=== PATIENT | male | born 1950 | race Caucasian/White ===

== ENCOUNTER → 2016-05-23 | Day surgery (SDC) | payer MEDICARE, OTHER ==
[~2016-05-23] VITALS: Ht 180.3 cm; Wt 105.7 kg
[~2016-05-23] MED LIST: /WARF5TA PO; ADVI200C5 PO; BUPIVACAINE HCL 0.25% 30 ML VIAL As Ordered ONE; BUPIVACAINE HCL 0.25% 30 ML VIAL XX ONE; DOCU10ELUD PO; ECOT325T PO; GLYCOPYRROLATE INJ 0.2 MG/ML 2 ML VIAL As Ordered ONE; LEVS0.123 PO; LORT5TAB PO; LR 1,000 ML IV SCH; METOCLOPRAMIDE INJ 10MG/2ML VIAL (J2765) As Ordered ONE; MIDAZOLAM INJ 2 MG/2 ML VIAL (J2250) As Ordered ONE; MORPHINE 2 MG/ML 1ML SYRINGE IV PRN; MULT1TAB11 PO; NEOSTIGMINE 1MG/ML 5 ML SYRINGE (J2710) As Ordered ONE; NORCO, ANEXSIA 5/325MG TABLET (HYDROcodone/ACETAMINOPHEN) As Ordered ONE; NORCO, ANEXSIA 5/325MG TABLET (HYDROcodone/ACETAMINOPHEN) PO PRN; ONDANSETRON 4MG/2ML VIAL (J2405) As Ordered ONE; ONDANSETRON 4MG/2ML VIAL (J2405) IV PRN; OXYC-208 PO; PHENYLephrine HCL 500 MCG/5 ML (100MCG/ML) SYRINGE (J2370) As Ordered ONE; PROPOFOL 200 MG/20 ML VIAL As Ordered ONE; ROCURONIUM BROMIDE 50 MG/5 ML VIAL As Ordered ONE; SIME80TA PO; XARE20TA PO; ZOLP5TAB PO; [UNRECOGNIZED DRUG - OTHER] OR; fentaNYL 100 MCG/2 ML INJECTION (J3010) IV PRN; fentaNYL 250 MCG/5 ML INJECTION (J3010) As Ordered ONE
[2016-05-23 12:30] VITALS: BP 144/85
--- NOTE | 2016-05-24 00:20 | RO ---
DATE OF PROCEDURE: 05/23/2016 PREOPERATIVE DIAGNOSIS: Ventral incisional hernia. POSTOPERATIVE DIAGNOSIS: Ventral incisional hernia. PROCEDURE PERFORMED: Laparoscopic ventral incisional herniorrhaphy with Parietex mesh patch. SURGEON: Dr. Kang Pimentel SUPPORT TEACHER: ANESTHESIA: General. INDICATIONS FOR PROCEDURE: The patient is a 66-year-old man who had undergone a laparoscopic converted to open low anterior resection several years ago. He has developed a small hernia above the umbilicus in an area where he had a trocar. He is now for a laparoscopic repair. DESCRIPTION OF PROCEDURE: The patient was placed under general endotracheal anesthesia. The patient's abdomen was prepped and draped in a . 0.25% Marcaine was infiltrated at the trocar sites prior to insertion. Initial entry was in the right lateral abdomen at the level of the umbilicus. A short incision was made. The Veress needle was inserted. The abdomen was insufflated with carbon dioxide gas and a 5 mm scope was placed through a 5-mm port and this was advanced through the abdominal wall without difficulty. Initial examination showed that there were surprisingly no adhesions to the anterior abdominal wall, either in the area of his hernia or down along his midline scar. He was noted to have a small fascial defect, probably 1-1/2 to 2 cm in size just above the umbilicus. This was just inferior to the inferior edge of his falciform ligament. A second 5 mm trocar was placed in the right upper quadrant and using the Harmonic scalpel, the preperitoneal fat on both sides of the fascial defect and extending up to include portions of the falciform ligament, were peeled away from the inner aspect of the abdominal wall and excised. This fatty tissue was grasped with a clamp and the abdomen was then deflated. A roughly 3-1/2 to 4 cm midline incision was made above the umbilicus and deepened to the hernia sac. The sac was dissected free and excised. The fascial defect was approximately 1-1/2 to 2 cm in size. The edges were cleared of overlying fibrofatty tissue. A 9 cm Parietex patch, product code number [id number] was selected. This was hydrated. The midline was marked with a marker. A 0 Ethibond suture was used to place a suture through the middle portion of the fascial defect and incorporate a very small bite of the center of the mesh which was reduced into the abdomen. The suture was tied down and two additional 0 Ethibond sutures were placed to complete the transverse closure of the fascial defect. The abdomen was then inflated. The mesh was positioned and a SecureStrap Tacker was used to apply the mesh to the anterior abdominal wall. The abdominal pressure was reduced to 8 mmHg when the mesh was applied and the 25 tacks nicely affixed the mesh to the abdominal wall. Final inspection showed no evidence of any significant bleeding. The abdomen was deflated, and the remaining trocars were removed. The subcutaneous tissues at the midline were closed with #0 Vicryl and the skin incisions were all closed with buried #4-0 Vicryl. Steri-Strips were applied followed by light dressings. The patient tolerated the procedure well without apparent complication. He was awakened in the operating room, extubated and moved to the recovery room in stable condition.
== END | disposition home or self-care (01) ==
LOC: M SDC 06:00
PROVIDERS: ATTEND Surgery
DX: K43.9 Ventral hernia without obstruction or gangrene (principal); I81 Portal vein thrombosis; E66.09 Other obesity due to excess calories; Z68.33 Body mass index [BMI] 33.0-33.9, adult; G47.33 Obstructive sleep apnea (adult) (pediatric); M10.9 Gout, unspecified; C18.9 Malignant neoplasm of colon, unspecified; M12.9 Arthropathy, unspecified; Z79.899 Other long term (current) drug therapy
CPT/HCPCS: 49652; 88302; C1781; J2250; J2370; J2405; J2710; J2765; J3010

== ENCOUNTER → 2017-02-07 | Outpatient (REF) | payer MEDICARE, OTHER ==
[~2017-02-07] MED LIST changes: -BUPIVACAINE HCL 0.25% 30 ML VIAL As Ordered ONE; -BUPIVACAINE HCL 0.25% 30 ML VIAL XX ONE; -ECOT325T PO; +ECOT325T5 PO; -GLYCOPYRROLATE INJ 0.2 MG/ML 2 ML VIAL As Ordered ONE; -LR 1,000 ML IV SCH; -METOCLOPRAMIDE INJ 10MG/2ML VIAL (J2765) As Ordered ONE; -MIDAZOLAM INJ 2 MG/2 ML VIAL (J2250) As Ordered ONE; -MORPHINE 2 MG/ML 1ML SYRINGE IV PRN; -NEOSTIGMINE 1MG/ML 5 ML SYRINGE (J2710) As Ordered ONE; -NORCO, ANEXSIA 5/325MG TABLET (HYDROcodone/ACETAMINOPHEN) As Ordered ONE; -NORCO, ANEXSIA 5/325MG TABLET (HYDROcodone/ACETAMINOPHEN) PO PRN; -ONDANSETRON 4MG/2ML VIAL (J2405) As Ordered ONE; -ONDANSETRON 4MG/2ML VIAL (J2405) IV PRN; -PHENYLephrine HCL 500 MCG/5 ML (100MCG/ML) SYRINGE (J2370) As Ordered ONE; -PROPOFOL 200 MG/20 ML VIAL As Ordered ONE; -ROCURONIUM BROMIDE 50 MG/5 ML VIAL As Ordered ONE; -fentaNYL 100 MCG/2 ML INJECTION (J3010) IV PRN; -fentaNYL 250 MCG/5 ML INJECTION (J3010) As Ordered ONE
[2017-02-07 21:15] LABS: CARCINOEMBRYONIC ANTIGEN 1.3 NG/ML (<2.5)
[2017-02-07 21:32] LABS: URIC ACID 10.5 MG/DL (3.5-7.2)
== END ==
LOC: M LAB REF 16:28
PROVIDERS: ATTEND Internal Medicine
DX: M10.9 Gout, unspecified (principal); C20 Malignant neoplasm of rectum

== ENCOUNTER → 2017-08-15 | Outpatient (REF) | payer MEDICARE, OTHER ==
[2017-08-15 12:25] LABS: URIC ACID 6.9 MG/DL (3.5-7.2)
== END ==
LOC: M LAB REF 11:50
DX: M10.9 Gout, unspecified (principal)

== ENCOUNTER → 2018-10-06 | Outpatient (REF) | payer MEDICARE, OTHER ==
[~2018-10-06] MED LIST changes: -/WARF5TA PO; +COUM1TAB17 PO; -DOCU10ELUD PO; +DOCU5LIQ PO
[2018-10-06 12:45] LABS: BLOOD UREA NITROGEN 14 MG/DL (7-18); CREATININE FOR GFR 1.11 MG/DL (0.70-1.30); GLOMERULAR FILTRATION RATE > 60.0 (>42)
== END ==
LOC: M LABDRAW1 11:41
PROVIDERS: ATTEND Physician Assistant
DX: M17.0 Bilateral primary osteoarthritis of knee (principal); M47.896 Other spondylosis, lumbar region; M51.36 Other intervertebral disc degeneration, lumbar region

== ENCOUNTER → 2018-10-19 | Outpatient (REF) | payer MEDICARE, OTHER ==
[2018-10-19 13:44] LABS: URIC ACID 6.3 MG/DL (3.5-7.2)
[2018-10-19 13:47] LABS: VITAMIN B12 LEVEL 621 PG/ML
[2018-10-19 13:48] LABS: FOLATE > 24.0 NG/ML
== END ==
LOC: M LAB REF 12:28
PROVIDERS: ATTEND Internal Medicine
DX: M10.9 Gout, unspecified (principal); R20.2 Paresthesia of skin

== ENCOUNTER 2020-03-05 07:29 | Inpatient (IN) | payer MEDICARE, OTHER ==
[~2020-03-05] VITALS: Ht 177.8 cm; Wt 107.0 kg
[2020-03-05] MEDS ORDERED: NS 1,000 ML IV ONE (08:15)
[2020-03-05 08:21] LABS: BASO % 0.2 % (0.0-1.0); EOS % 0.1 % (0.0-3.0); HEMATOCRIT 44.1 % (42.0-52.0); HEMOGLOBIN 15.3 g/dl (13.5-17.5); LYMPH # 0.6 10^3/uL (1.5-5.0); LYMPH % 3.3 % (24.0-44.0); MEAN CORPUSCULAR HEMOGLOBIN 32.7 pg (27.0-33.0); MEAN CORPUSCULAR HGB CONC 34.7 g/dl (32.0-36.5); MEAN CORPUSCULAR VOLUME 94.2 fl (80.0-96.0); MONO # 1.1 10^3/uL (0.0-0.8); NEUTROPHILS % 88.5 % (36.0-66.0); PLATELET COUNT, AUTOMATED 146 10^3/uL (150-450); RED BLOOD COUNT 4.68 10^6/uL (4.30-6.10); WHITE BLOOD COUNT 18.1 10^3/uL (4.0-10.0)
[2020-03-05] MEDS ORDERED: ACETAMINOPHEN 500 MG TAB PO ONE (08:30)
[2020-03-05] MEDS ORDERED: PIPERACILLIN/TAZOBACTAM SOD 4.5 GM in D5W MINI-BAG PLUS 50 ML IV ONE (08:30)
[2020-03-05 08:57] LABS: ALBUMIN 3.6 GM/DL (3.2-5.2); BILIRUBIN,DIRECT 0.5 MG/DL (0.0-0.2); BILIRUBIN,TOTAL 1.2 MG/DL (0.2-1.0); C REACTIVE PROTEIN QUANTITATIV 28.5 MG/DL (0.00-0.30); TOTAL PROTEIN 7.5 GM/DL (6.4-8.2)
--- NOTE | 2020-03-05 09:32 | REP ---
INDICATION: dysuria, hematuria COMPARISON: 06/15/2014 TECHNIQUE: Axial noncontrast images from the lung bases to the pubic symphysis with coronal and sagittal reformations. This CT examination was performed using the following dose reduction techniques: Automated exposure control, adjustment of mA and/or kv according to the patient's size, and use of iterative reconstruction technique. FINDINGS: The bladder is collapsed but subtle perivesicular stranding is appreciated raising the possibility of cystitis. Prostatomegaly is noted causing mass effect on the base of the bladder. The kidneys demonstrate mild symmetric chronic perinephric stranding without hydroureteronephrosis or nephroureterolithiasis. Diffuse fatty infiltration to the liver noted. Spleen, pancreas, gallbladder, and bilateral adrenal glands are normal. The enteric system is without obstruction or acute inflammatory process. Scattered colonic and sigmoid diverticula noted without acute diverticulitis. No ascites. No free air. No adenopathy. Atherosclerotic changes to the aorta noted without aneurysm. Musculoskeletal structures demonstrate degenerative changes. Lung bases are clear. IMPRESSION: 1. Bladder demonstrates perivesicular stranding suggesting cystitis and correlation with urinalysis is recommended. The kidneys/ureters are normal. 2. Prostatomegaly. 3. Diverticulosis without acute diverticulitis. 4. Hepatosteatosis. <Electronically signed by Anton Grewal > 03/05/20 [id number]
[2020-03-05] MEDS ORDERED: ZINC220CA PO (09:51)
[2020-03-05] MEDS ORDERED: ZYLO300T6 PO (09:51)
[2020-03-05] MEDS ORDERED: OMEP-218 PO (09:51)
[2020-03-05] MEDS ORDERED: D31000TA2 PO (09:51)
[2020-03-05] MEDS ORDERED: COLC1TAB14 PO (09:51)
[2020-03-05] MEDS ORDERED: zolPIDEM TARTRATE 5 MG TAB PO PRN (10:45)
--- NOTE | 2020-03-05 12:19 | HPEPDOC ---
[facility] Medical History & Physical Date of Admission Mar 05, 2020 Date of Service: Mar 05, 2020 Attending Physician: Jacqueline Camargo MD History and Physical CHIEF COMPLAINT: Burning with urination, diarrhea HISTORY OF PRESENT ILLNESS: Patient is a 70-year-old male with past medical history of colorectal cancer, portal vein thrombosis, RIC, gout, degenerative joint disease presented to the emergency room with the chief complaint of increased burning with urination and diarrhea over the last 48 hours. Patient states his abnormal symptoms began on 03/03/2020 with having 34 nonbloody diarrhea episodes, watery in consistency. He denies any recent antibiotic use, recent hospitalizations, diet changes or abdominal pain associated with diarrhea. He also began having increased dysuria and increased urinary frequency compared to normal. He denied nausea, vomiting, chest pain, shortness of breath, abdominal/pubic pain, weakness. Other associated symptoms include chills, decreased appetite, decreased intake of fluids and food. Due to the symptoms above the patient came for further evaluation to the ER. In the emergency room heart rate was 117256, blood pressure within normal limits, febrile at 101.3 Fahrenheit. WBC 18.1, lactic acid elevated at 2.1, UA was positive. The patient has no prior history of urinary tract infection. CT abd/pelvis: likely cystitis. Urine culture was sent and blood cultures 2 sets were drawn. ECG showed sinus tachycardia. The patient was given 1 L saline and antibiotic. The patient was admitted for further treatment of UTI, sepsis. REVIEW OF SYSTEMS: CONSTITUTIONAL: Denies unexplained weight gain or weight loss EYES: Denies eye drainage, eye pain, visual changes, dry/irritated eye EARS, NOSE, MOUTH, THROAT: Denies difficulty hearing, ringing in ears, mouth sores, loose teeth, sore throat, facial numbness or pain NECK: Denies swollen glands CARDIOVASCULAR: Denies irregular heartbeat, racing heart, chest pains, swelling of feet or legs, pain in legs with walking RESPIRATORY: Denies shortness of breath, night sweats, wheezing, sputum production, oxygen at home, coughing up blood, cough lasting > 1 month GASTROINTESTINAL: Denies abdominal pain, constipation, bloody stool, heartburn, nausea, vomiting GENITOURINARY: Denies bloody urine, leaking urine, impotence MUSCULOSKELETAL: Denies joint pain, muscle pain, leg swelling INTEGUMENTARY: Denies rash, itching, new skin lesion, change in existing skin lesion, hair loss or increase, breast changes. NEUROLOGICAL: Denies headaches, dizziness, difficulty walking, numbness or tingling PSYCHIATRIC: Denies depression, anxiety, recurrent bad thoughts, mood swings, hallucinations PAST MEDICAL HISTORY: 1. colorectal cancer 2. portal vein thrombosis 2012 3. RIC 4. gout 5. degenerative joint disease PAST SURGICAL HISTORY: 1. Carpal tunnel surgery b/l 2. facial surgery s/p trauma 3. b/l knee arthroplasty 2010 4. Multiple hernia repair 5. abdominal surgery to excise colorectal cancer 6. Steroid injections to left hip FAMILY HISTORY: Father: CVA, Mother: CAD, Siblings: sister- MS SOCIAL HISTORY: Prior smoker of several packs per week over 16 years. Quit February 1986. Drinks alcohol socially, denies drug use. Follows with Dr. Villafuerte primary care pro vider regularly. Follows with oncology at [facility]. He is a retired transportation officer and does not use a cane or a walker to ambulate. He is a full code. ALLERGIES: Please see below. HOME MEDICATIONS: Please see below. PHYSICAL EXAMINATION: VS: HR 103-120, sinus. 126/75, RR 18, 95% on RA, Temp 101.3 CONSTITUTIONAL: No acute distress, resting comfortably, AAO x 3 EYES: PERRLA, EOM intact HENT, MOUTH: Normocephalic, atraumatic, moist mucous membranes NECK: SUPPLE, no JVD, no lymphadenopathy, no carotid bruit CV: tachycardic, sinus. S1S2 normal, no murmurs/rubs/gallops RESPIRATORY: Clear to auscultation bilaterally, no rales/rhonchi/wheezes GI: distended abdomen, BS positive in 4 quadrants, soft, nontender, no rebound or guarding, no organomegaly : Deferred MUSCULOSKELETAL: Normal ROM. No cyanosis, clubbing, swelling, joint deformity, extremity edema INTEGUMENTARY: Intact, no rashes, no lesions, no erythema NEUROLOGIC: Cranial Nerves II-XII are intact, no focal deficits PSYCHIATRIC: Mood and affect are normal LABORATORY DATA: Please see below IMAGING: CT abd/pelvis: 1. Bladder demonstrates perivesicular stranding suggesting cystitis and correlation with urinalysis is recommended. The kidneys/ureters are normal. 2. Prostatomegaly. 3. Diverticulosis without acute diverticulitis. 4. Hepatosteatosis. ASSESSMENT: 70-year-old male with past medical history of colorectal cancer, portal vein thrombosis, RIC, hx gout, degenerative joint disease admitted admitted for further treatment of UTI, sepsis. PLAN: UTI, sepsis -WBC 18, febrile, HR 103-120 with UCx pending -No hx of UTI in past -F/u UCx and BCx, daily labs -Started on IVFs, ceftriaxone, tylenol PRN. Diarrhea likely 2/2 to sepsis, not suspecting an infectious GI source -no episodes since the AM -Denies abd pain, n/v -Monitor, c/w treatment above RIC -Does not use nightly as suggested, no home O2 -F/u with PCP Hx of colorectal cancer -S/p colorectal cancer resection, cancer free for 6 years -Follows with [facility] regularly hx of portal vein thrombosis -C/w ASA DJD -Follows with [facility], received first left hip steroid injection recently -Tylenol PRN DVT px. -Enoxaparin DISPOSITION: Admitted under inpatient status. Plan is discharge home when medically improved. Vital Signs Vital Signs Date Time Temp Pulse Resp B/P (MAP) Pulse Ox O2 Delivery O2 Flow Rate FiO2 03/05/20 11:00 97.6 100 93 03/05/20 09:30 20 Room Air 03/05/20 09:00 118/68 (85) Laboratory Data Labs 24H Laboratory Tests 2 03/05/20 08:03: Immature Granulocyte % (Auto) 1.9, Neutrophils (%) (Auto) 88.5H, Lymphocytes (%) (Auto) 3.3L, Monocytes (%) (Auto) 6.0H, Eosinophils (%) (Auto) 0.1, Basophils (%) (Auto) 0.2, Neutrophils # (Auto) 16.0H, Lymphocytes # (Auto) 0.6L, Monocytes # (Auto) 1.1H, Eosinophils # (Auto) 0.0, Basophils # (Auto) 0.0, Nucleated Red Blood Cells % (auto) 0.0, POC Glucose (Misc Panel) 153H, POC Sodium (Misc Panel) 134L, POC Potassium (Misc Panel) 3.9, POC Chloride (Misc Panel) 99, POC Total CO2 (Misc Panel) 20.0L, POC Blood Urea Nitrogen (Misc Panel 20, POC Ionized Calcium (Misc Panel) 4.4L, POC Creatinine (Misc Panel) 1.3, POC Hematocrit (Misc Panel) 47.0, Total Bilirubin 1.2H, Direct Bilirubin 0.5H, Aspartate Amino Transf (AST/SGOT) 32, Alanine Aminotransferase (ALT/SGPT) 37, Alkaline Phosphatase 85, C-Reactive Protein, Quantitative 28.50H, Total Protein 7.5, Albumin 3.6, Albumin/Globulin Ratio 0.9, Amylase Level 18L, Lipase 77 03/05/20 08:04: POC Lactate (Misc Panel) 2.09*H 03/05/20 08:07: POC Troponin I (Misc) 0.01, POC Prothrombin Time (Misc) 15.2H, POC INR (Misc) 1.3 03/05/20 08:08: Urine Color FUENTES, Urine Appearance TURBIDH, Urine pH 5.0, Urine Specific [place] 1.024, Urine Protein 2+H, Urine Glucose (UA) NEGATIVE, Urine Ketones NEGATIVE, Urine Blood 3+H, Urine Nitrite NEGATIVE, Urine Bilirubin NEGATIVE, Urine Urobilinogen 0.2, Urine Leukocyte Esterase 2+H, Urine WBC (Auto) TNTCH, Urine RBC (Auto) TNTCH, Urine Hyaline Casts (Auto) 84, Urine Bacteria (Auto) 2+H, Urine Squamous Epithelial Cells 2, Urine Transitional Epithelial Cells 6, Urine Mucus (Auto) LARGE, Urine Sperm (Auto) CBC/BMP Laboratory Tests 03/05/20 08:03 Microbiology Microbiology 03/05/20 Urine Culture, Received Pending 03/05/20 Blood Culture, Received Pending 03/05/20 Blood Culture, Received Pending Home Medications Scheduled Allopurinol (Zyloprim) 300 Mg Tablet, 300 MG PO DAILY Aspirin (Ecotrin) 325 Mg Tab, 325 MG PO DAILY Cholecalciferol (Vitamin D3) (Vitamin D3) 1,000 Unit Tablet, 1,000 UNITS PO D AILY Colchicine (Colcrys) 0.6 Mg Tablet, 0.6 MG PO DAILY Omeprazole (Omeprazole) 20 Mg Capsule.dr, 20 MG PO DAILY Zinc Sulfate (Zinc Sulfate) 220 Mg Capsule, 220 MG PO DAILY Scheduled PRN Zolpidem Tartrate (Zolpidem Tartrate) 5 Mg Tab, 5 MG PO PRN PRN for SLEEP Allergies Coded Allergies: No Known Allergies (Verified , 07/05/12) A-FIB/CHADSVASC A-FIB History Current/History of A-Fib/PAF?: No Current PO Anticoag Therapy: No Age/Risk Factor Scoring CHADSVASC: CHADSVASC Response (Comments) Value Age Risk Factor Age 65-74 years old 1 Gender Risk Factor Male 0 Hx of CHF No 0 Hx of HTN No 0 Hx of Stroke/TIA/or VTE No 0 Hx of Diabetes No 0 Hx of Vascular Disease No 0 Total 1 Treatment Treatment ordered: Other Other anticoagulant ordered: Jacqueline Avila MD Mar 05, 2020 12:19
[2020-03-05] MEDS: NS 1,000 ML IV SCH ×2 (12:39→22:48)
[2020-03-05] MEDS: cefTRIAXone SOD 1 GM in D5W MINI-BAG PLUS 50 ML IV SCH (12:39)
[2020-03-05 12:53] VITALS: BP 139/79
[2020-03-05] MEDS: OMEPRAZOLE 20 MG CAP PO SCH (13:19)
[2020-03-05] MEDS: VITAMIN D 1,000 INTERNATIONAL UNITS TABLET PO SCH (13:19)
[2020-03-05] MEDS: ASPIRIN ENTERIC 325 MG TAB PO SCH (13:19)
[2020-03-05] MEDS: allopurinoL 300 MG TAB PO SCH (13:19)
[2020-03-05] MEDS: COLCHICINE 0.6 MG TAB PO SCH (14:19)
[2020-03-05] MEDS: ZINC SULFATE 220 MG CAP PO SCH (14:19)
[2020-03-05] MEDS: ACETAMINOPHEN TAB 650MG DOSE (2X325MG) PO PRN ×2 (14:20→14:43)
[2020-03-05 14:35] VITALS: BP 155/90
[2020-03-05 18:00] VITALS: BP 136/82
[2020-03-05] MEDS ORDERED: PHENAZOPYRIDINE 100 MG TAB PO ONE (18:00)
[2020-03-05] MEDS: PHENAZOPYRIDINE 100 MG TAB PO SCH (20:46)
[2020-03-05] MEDS ORDERED: ENOXAPARIN 40MG/0.4ML SYRINGE (J1650 PER 10MG) SC SCH (21:00)
[2020-03-05 22:00] VITALS: BP 133/81
[2020-03-06 02:00] VITALS: BP 131/81
[2020-03-06 06:00] VITALS: BP 130/79
[2020-03-06 06:09] LABS: HEMATOCRIT 40.4 % (42.0-52.0); HEMOGLOBIN 13.4 g/dl (13.5-17.5); MEAN CORPUSCULAR HEMOGLOBIN 31.8 pg (27.0-33.0); MEAN CORPUSCULAR HGB CONC 33.2 g/dl (32.0-36.5); MEAN CORPUSCULAR VOLUME 95.7 fl (80.0-96.0); PLATELET COUNT, AUTOMATED 134 10^3/uL (150-450); RED BLOOD COUNT 4.22 10^6/uL (4.30-6.10); WHITE BLOOD COUNT 14.5 10^3/uL (4.0-10.0)
[2020-03-06 06:29] LABS: ALBUMIN 3.1 GM/DL (3.2-5.2); BILIRUBIN,TOTAL 0.8 MG/DL (0.2-1.0); CALCIUM LEVEL 8.1 MG/DL (8.8-10.2); CREATININE FOR GFR 1.26 MG/DL (0.70-1.30); GLOMERULAR FILTRATION RATE 59.9 (>42); POTASSIUM SERUM 3.8 MEQ/L (3.5-5.1); TOTAL PROTEIN 6.8 GM/DL (6.4-8.2)
[2020-03-06] MEDS: COLCHICINE 0.6 MG TAB PO SCH (08:42)
[2020-03-06] MEDS: ZINC SULFATE 220 MG CAP PO SCH (08:42)
[2020-03-06] MEDS: PHENAZOPYRIDINE 100 MG TAB PO SCH ×2 (08:42→20:11)
[2020-03-06] MEDS: ASPIRIN ENTERIC 325 MG TAB PO SCH (08:42)
[2020-03-06] MEDS: OMEPRAZOLE 20 MG CAP PO SCH (08:42)
[2020-03-06] MEDS: VITAMIN D 1,000 INTERNATIONAL UNITS TABLET PO SCH (08:42)
[2020-03-06] MEDS: allopurinoL 300 MG TAB PO SCH (08:42)
[2020-03-06] MEDS: NS 1,000 ML IV SCH ×2 (08:43→20:11)
[2020-03-06] MEDS ORDERED: FLUBLOK(EGG FREE)(QUAD)INFLUENZA VACC 0.5ML SYRINGE 18YRS & OLDER IM ONE (09:00)
[2020-03-06 10:00] VITALS: BP 130/78
--- NOTE | 2020-03-06 11:57 | IPNPDOC ---
Date Seen The patient was seen on 03/06/20. Progress Note SUBJECTIVE: Hematuria today, stopped ASA and hematuria. 10 episodes of watery diarrhea overnight, states this happens every 2 weeks at home. WBC improved, afebrile since last night.All cultures still pending. Denies chest pain, shortness of breath, n/v, chills, abdominal pain. OBJECTIVE: PHYSICAL EXAMINATION: VS: Please see below CONSTITUTIONAL: No acute distress, resting comfortably, AAO x 3 EYES: PERRLA, EOM intact HENT, MOUTH: Normocephalic, atraumatic, moist mucous membranes NECK: SUPPLE, no JVD, no lymphadenopathy, no carotid bruit CV: tachycardic, sinus. S1S2 normal, no murmurs/rubs/gallops RESPIRATORY: Clear to auscultation bilaterally, no rales/rhonchi/wheezes GI: obese distended abdomen, BS positive in 4 quadrants, soft, nontender, no rebound or guarding, no organomegaly : Deferred MUSCULOSKELETAL: Normal ROM. No cyanosis, clubbing, swelling, joint deformity, extremity edema INTEGUMENTARY: Intact, no rashes, no lesions, no erythema NEUROLOGIC: Cranial Nerves II-XII are intact, no focal deficits PSYCHIATRIC: Mood and affect are normal LABORATORY DATA: Please see below IMAGING: CT abd/pelvis: 1. Bladder demonstrates perivesicular stranding suggesting cystitis and correlation with urinalysis is recommended. The kidneys/ureters are normal. 2. Prostatomegaly. 3. Diverticulosis without acute diverticulitis. 4. Hepatosteatosis. ASSESSMENT: 70-year-old male with past medical history of colorectal cancer, portal vein thrombosis, RIC, hx gout, degenerative joint disease admitted admitted for further treatment of UTI, sepsis, hematuria. PLAN: UTI, sepsis -WBC 14.5, febrile overnight, HR 101 with UCx pending -No hx of UTI in past -F/u UCx and BCx, daily labs -C/w IVFs, ceftriaxone, tylenol PRN. Diarrhea, possibly chronic vs. infectious source. -10 watery BM over the evening. According to patient, every 2-3 weeks patient has episodes of diarrhea like this (told to him to be 2/2 to prior colorectal surgery) and he is prescribed loperamide for this. -F/u GI panel to r/o infectious source -If Gi panel neg, consider starting loperamide PRN. -Denies abd pain, n/v -Monitor, c/w IVFs Hematuria, acute -worsened throughout morning today -Stopped lovenox and ASA -Monitor CBC RIC -Does not use nightly as suggested, no home O2 -F/u with PCP Hx of colorectal cancer -S/p colorectal cancer resection, cancer free for 6 years -Follows with [facility] regularly hx of portal vein thrombosis -Holding ASA DJD -Follows with [facility], received first left hip steroid injection recently -Tylenol PRN DVT px. -D/c enoxaparin and ASA today 2/2 to hematuria. Teds, SCDs. DISPOSITION: Admitted under inpatient status. Plan is discharge home when medically improved. VS, I&O, 24H, Fishbone Vital Signs/I&O Vital Signs Date Time Temp Pulse Resp B/P (MAP) Pulse Ox O2 Delivery O2 Flow Rate FiO2 03/06/20 10:00 98.3 102 18 130/78 (95) 96 Room Air I&O- Last 24 Hours up to 6 AM 03/06/20 06:00 Intake Total 3250 ml Output Total 725 ml Balance 2525 ml Laboratory Data 24H LABS Laboratory Tests 2 03/05/20 12:05: Lactic Acid Level 1.4 03/06/20 05:21: Nucleated Red Blood Cells % (auto) 0.0, Anion Gap 10, Glomerular Filtration Rate 59.9, Calcium Level 8.1L, Total Bilirubin 0.8, Aspartate Amino Transf (AST/SGOT) 35, Alanine Aminotransferase (ALT/SGPT) 31, Alkaline Phosphatase 75, Total Protein 6.8, Albumin 3.1L, Albumin/Globulin Ratio 0.8 CBC/BMP Laboratory Tests 03/06/20 05:21 Microbiology Microbiology 03/05/20 Campylobacter (PCR), Received Pending 03/05/20 Clostridium difficile Toxin A&B PCR, Received Pending 03/05/20 Plesiomonas shigelloides (PCR), Received Pending 03/05/20 Salmonella (PCR)(BLAKE), Received Pending 03/05/20 Vibrio Species (PCR), Received Pending 03/05/20 Vibrio Cholerae (PCR), Received Pending 03/05/20 Yersinia enterocolitica (PCR), Received Pending 03/05/20 Enteroaggregative E. coli (PCR), Received Pending 03/05/20 Enteropathogenic E. coli (PCR), Received Pending 03/05/20 Enterotoxigenic E. coli (PCR), Received Pending 03/05/20 E. coli Shiga-like Toxin (PCR), Received Pending 03/05/20 Escherichia coli 0157 (PCR), Received Pending 03/05/20 Enteroinvasive E. coli/Shigella PCR, Received Pending 03/05/20 Cryptosporidium (PCR), Received Pending 03/05/20 Cyclospora cayetanensis (PCR), Received Pending 03/05/20 Entamoeba histolytica (PCR), Received Pending 03/05/20 Giardia lamblia (PCR), Received Pending 03/05/20 Adenovirus Type F 40/41 (PCR), Received Pending 03/05/20 Astrovirus (PCR), Received Pending 03/05/20 Norovirus GI/GII (PCR), Received Pending 03/05/20 Rotavirus A (PCR), Received Pending 03/05/20 Sapovirus I/II/IV/V (PCR), Received Pending 03/05/20 Urine Culture, Received Pending 03/05/20 Blood Culture - Preliminary, Resulted No growth after 24 hours . All specim... 03/05/20 Blood Culture - Preliminary, Resulted No growth after 24 hours . All specim... Current Medications Current Medications Medications (Trade) Dose Ordered Sig/Ava Route PRN Reason Start Time Stop Time Status Last Admin Dose Admin Acetaminophen (Tylenol Tab) 650 mg Q4H PRN PO PAIN OR FEVER 03/05/20 10:45 03/06/20 12:49 Allopurinol (Zyloprim) 300 mg DAILY PO 03/05/20 09:00 03/06/20 08:42 Aspirin (Ecotrin) 325 mg DAILY PO 03/05/20 09:00 03/06/20 10:03 DC 03/06/20 08:42 Ceftriaxone Sodium 1 gm/ Dextrose 50 ml @ 100 mls/hr Q24H IV 03/05/20 12:00 03/06/20 12:49 Colchicine (Colcrys) 0.6 mg DAILY PO 03/05/20 09:00 03/06/20 08:42 Enoxaparin Sodium (Lovenox) 40 mg QHS SC 03/05/20 21:00 03/06/20 09:13 DC 03/05/20 20:46 Home Med (Med Rec Complete!) ASDIRECTED XX 03/05/20 10:00 03/05/20 09:56 DC Omeprazole (PriLOSEC) 20 mg DAILY PO 03/05/20 09:00 03/06/20 08:42 Phenazopyridine HCl (Pyridium) 100 mg BID PO 03/05/20 21:00 03/06/20 08:42 Sodium Chloride 1,000 ml @ 85 mls/hr [id number] IV 03/05/20 11:00 03/06/20 08:43 Vitamin D (Vitamin D) 1,000 units DAILY PO 03/05/20 09:00 03/06/20 08:42 Zinc Sulfate (Zinc Sulfate) 220 mg DAILY PO 03/05/20 09:00 03/06/20 08:42 Zolpidem Tartrate (Ambien) 5 mg QHSP PRN PO SLEEP 03/05/20 10:45 Allergies Coded Allergies: No Known Allergies (Verified , 07/05/12) Jacqueline Camargo MD Mar 06, 2020 11:57
[2020-03-06] MEDS: cefTRIAXone SOD 1 GM in D5W MINI-BAG PLUS 50 ML IV SCH (12:49)
[2020-03-06] MEDS: ACETAMINOPHEN TAB 650MG DOSE (2X325MG) PO PRN (12:49)
[2020-03-06 14:00] VITALS: BP 149/91
[2020-03-06 18:00] VITALS: BP 146/86
[2020-03-06] MEDS ORDERED: cefTRIAXone SOD 2 GM in D5W MINI-BAG PLUS 50 ML IV SCH (21:00)
[2020-03-06 22:00] VITALS: BP 138/97
[2020-03-07 02:00] VITALS: BP 143/88
[2020-03-07 06:00] VITALS: BP 146/88
[2020-03-07 06:03] LABS: HEMOGLOBIN 11.8 g/dl (13.5-17.5); MEAN CORPUSCULAR HEMOGLOBIN 31.5 pg (27.0-33.0); MEAN CORPUSCULAR HGB CONC 32.8 g/dl (32.0-36.5); PLATELET COUNT, AUTOMATED 124 10^3/uL (150-450); RED BLOOD COUNT 3.75 10^6/uL (4.30-6.10); WHITE BLOOD COUNT 9.1 10^3/uL (4.0-10.0)
[2020-03-07 06:29] LABS: ALBUMIN 2.7 GM/DL (3.2-5.2); ALT/SGPT 52 U/L (12-78); BILIRUBIN,TOTAL 0.5 MG/DL (0.2-1.0); BLOOD UREA NITROGEN 14 MG/DL (7-18); CARBON DIOXIDE LEVEL 24 MEQ/L (21-32); CHLORIDE LEVEL 107 MEQ/L (98-107); CREATININE FOR GFR 0.78 MG/DL (0.70-1.30); GLOMERULAR FILTRATION RATE > 60.0 (>42); GLUCOSE, FASTING 96 MG/DL (70-100); POTASSIUM SERUM 3.8 MEQ/L (3.5-5.1); SODIUM LEVEL 139 MEQ/L (136-145); TOTAL PROTEIN 5.9 GM/DL (6.4-8.2)
[2020-03-07] MEDS: COLCHICINE 0.6 MG TAB PO SCH (08:30)
[2020-03-07] MEDS: OMEPRAZOLE 20 MG CAP PO SCH (08:30)
[2020-03-07] MEDS: PHENAZOPYRIDINE 100 MG TAB PO SCH (08:30)
[2020-03-07] MEDS: VITAMIN D 1,000 INTERNATIONAL UNITS TABLET PO SCH (08:30)
[2020-03-07] MEDS: allopurinoL 300 MG TAB PO SCH (08:30)
[2020-03-07] MEDS: NS 1,000 ML IV SCH (08:30)
[2020-03-07] MEDS: ZINC SULFATE 220 MG CAP PO SCH (08:30)
--- NOTE | 2020-03-07 08:56 | ECGEPIP ---
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
[2020-03-07 10:00] VITALS: BP 147/88
[2020-03-07] MEDS ORDERED: ASPI81CH33 PO (11:57)
[2020-03-07] MEDS ORDERED: LEVO500T3 PO (11:57)
--- NOTE | 2020-03-07 17:14 | DS.PDOC ---
Discharge Summary General Date of Admission Mar 05, 2020 at 10:31 Date of Discharge 03/07/20 Discharge Summary PROCEDURES PERFORMED DURING STAY: [None]. ADMITTING DIAGNOSES: sepsis UTI Diarrhea, Hematuria RIC Hx of colorectal cancer DJD hx of portal vein thrombosis DISCHARGE DIAGNOSES: sepsis UTI Diarrhea, Hematuria RIC Hx of colorectal cancer DJD hx of portal vein thrombosis COMPLICATIONS/CHIEF COMPLAINT: Sepsis,Urinary Tract Infection. HISTORY OF PRESENT ILLNESS: 70-year-old male with past medical history of colorectal cancer, portal vein thrombosis, RIC, hx gout, degenerative joint dise ase admitted admitted for further treatment of UTI, sepsis, hematuria. HOSPITAL COURSE: During hospital stay following issues addressed UTI, sepsis Patient received treatment with ceftriaxone IV Blood culture negative for 48 hours UA positive for Enterobacter Diarrhea Patient stated that he has been having frequent bowel movements secondary to colorectal surgery due to lung cancer Hematuria, acute Patient will need follow-up with urologist for cystoscopy -Stopped lovenox and ASA RIC -Does not use nightly as suggested, no home O2 -F/u with PCP Hx of colorectal cancer -S/p colorectal cancer resection, cancer free for 6 years -Follows with [facility] regularly hx of portal vein thrombosis -Holding ASA DJD -Follows with [facility], received first left hip steroid injection recently -Tylenol PRN DVT px. -D/c enoxaparin and ASA today 2/2 to hematuria. Teds, SCDs. DISCHARGE MEDICATIONS: Please see below. ALLERGIES: Please see below. PHYSICAL EXAMINATION ON DISCHARGE: VITAL SIGNS: Please see below. CONSTITUTIONAL: No acute distress, resting comfortably, AAO x 3 EYES: PERRLA, EOM intact HENT, MOUTH: Normocephalic, atraumatic, moist mucous membranes NECK: SUPPLE, no JVD, no lymphadenopathy, no carotid bruit CV: tachycardic, sinus. S1S2 normal, no murmurs/rubs/gallops RESPIRATORY: Clear to auscultation bilaterally, no rales/rhonchi/wheezes GI: obese distended abdomen, BS positive in 4 quadrants, soft, nontender, no rebound or guarding, no organomegaly : Deferred MUSCULOSKELETAL: Normal ROM. No cyanosis, clubbing, swelling, joint deformity, extremity edema INTEGUMENTARY: Intact, no rashes, no lesions, no erythema NEUROLOGIC: Cranial Nerves II-XII are intact, no focal deficits PSYCHIATRIC: Mood and affect are normal LABORATORY DATA: Please see below. IMAGING: [facility] NAME: YELITZA PECK DATE OF : 1950 AGE: 70 SEX: M REPORT #: [id number] ROOM: ED TECHNOLOGIST: [id number] DOCTOR: MANOJ CASTRO DO Ordered for Date&Time: 03/05/20818 cc: [~ rep ct ivnm] Service Date&Time: 03/05/20910 This report is in Signed status. If this report is in a DRAFT status it has not yet been reviewed by the radiologist for accuracy. Thank you for having your radiology procedures performed at [facility] RADIOLOGY REPORT Date&Time printed: [~ rep prt dt last] [~ rep prt tm last] Page 2 of [address] [id number] RADIOLOGY REPORT This report is in Signed status. If this report is in a DRAFT status it has not yet been reviewed by the radiolo gist for accuracy. Thank you for having your radiology procedures performed at [facility] RADIOLOGY REPORT Date&Time printed: [~ rep prt dt last] [~ rep prt tm last] Page 1 of 1 06/15/2014 TECHNIQUE: Axial noncontrast images from the lung bases to the pubic symphysis with coronal and sagittal reformations. This CT examination was performed using the following dose reduction techniques: Automated exposure control, adjustment of mA and/or kv according to the pa tient's size, and use of iterative reconstruction technique. FINDINGS: The bladder is collapsed but subtle perivesicular stranding is appreciated raising the possibility of cystitis. Prostatomegaly is noted causing mass effect on the base of the bladder. The kidneys demonstrate mild symmetric chronic perinephric stranding without hydroureteronephrosis or nephroureterolithiasis. Diffuse fatty infiltration to the liver noted. Spleen, pancreas, gallbladder, and bilateral adrenal glands are normal. The enteric system is without obstruction or acute inflammatory process. Scattered colonic and sigmoid diverticula noted without acute diverticulitis. No ascites. No free air. No adenopathy. Atherosclerotic changes to the aorta noted without aneurysm. Musculoskeletal structures demonstrate degenerative changes. Lung bases are clear. IMPRESSION: 1. Bladder demonstrates perivesicular stranding suggesting cystitis and correlation with urinalysis is recommended. The kidneys/ureters are normal. 2. Prostatomegaly. 3. Diverticulosis without acute diverticulitis. 4. Hepatosteatosis. <Electronically signed by Anton Grewal > 03/05/20927 DD: Anton Grewal MD 03/05/20924 DT: CHIP 03/05/20927 DS: JASMINE 03/05/2092403/05/20924 [~ rep ct labl] PROGNOSIS: Fair ACTIVITY: [As tolerated]. DIET: Regular DISPOSITION: 01 Home, Self-Care. ITEMS TO FOLLOWUP ON ON OUTPATIENT: Follow-up with urologist, junior staff accountant and PCP in the outpatient settings DISCHARGE CONDITION: [Stable]. TIME SPENT ON DISCHARGE: Greater than 40 minutes. Vital Signs/I&Os Vital Signs Date Time Temp Pulse Resp B/P (MAP) Pulse Ox O2 Delivery O2 Flow Rate FiO2 03/07/20 10:00 97.9 77 20 147/88 (107) 95 Room Air I&O- Last 24 Hours up to 6 AM 03/07/20 06:00 Intake Total 2028 ml Output Total 500 ml Balance 1528 ml Laboratory Data Labs 24H Laboratory Tests 2 03/07/20 05:45: Nucleated Red Blood Cells % (auto) 0.0, Anion Gap 8, Glomerular Filtration Rate > 60.0, Calcium Level 8.0L, Total Bilirubin 0.5, Aspartate Amino Transf (AST/SGOT) 56H, Alanine Aminotransferase (ALT/SGPT) 52, Alkaline Phosphatase 70, Total Protein 5.9L, Albumin 2.7L, Albumin/Globulin Ratio 0.8 CBC/BMP Laboratory Tests 03/07/20 05:45 Microbiology Microbiology 03/05/20 Campylobacter (PCR), Received Pending 03/05/20 Clostridium difficile Toxin A&B PCR, Received Pending 03/05/20 Plesiomonas shigelloides (PCR), Received Pending 03/05/20 Salmonella (PCR)(BLAKE), Received Pending 03/05/20 Vibrio Species (PCR), Received Pending 03/05/20 Vibrio Cholerae (PCR), Received Pending 03/05/20 Yersinia enterocolitica (PCR), Received Pending 03/05/20 Enteroaggregative E. coli (PCR), Received Pending 03/05/20 Enteropathogenic E. coli (PCR), Received Pending 03/05/20 Enterotoxigenic E. coli (PCR), Received Pending 03/05/20 E. coli Shiga-like Toxin (PCR), Received Pending 03/05/20 Escherichia coli 0157 (PCR), Received Pending 03/05/20 Enteroinvasive E. coli/Shigella PCR, Received Pending 03/05/20 Cryptosporidium (PCR), Received Pending 03/05/20 Cyclospora cayetanensis (PCR), Received Pending 03/05/20 Entamoeba histolytica (PCR), Received Pending 03/05/20 Giardia lamblia (PCR), Received Pending 03/05/20 Adenovirus Type F 40/41 (PCR), Received Pending 03/05/20 Astrovirus (PCR), Received Pending 03/05/20 Norovirus GI/GII (PCR), Received Pending 03/05/20 Rotavirus A (PCR), Received Pending 03/05/20 Sapovirus I/II/IV/V (PCR), Received Pending 03/05/20 Urine Culture - Final, Complete Enterobacter Aerogenes 03/05/20 Blood Culture - Preliminary, Resulted No Growth after 48 hours. All Specime... 03/05/20 Blood Culture - Preliminary, Resulted Discharge Medications Scheduled Allopurinol (Zyloprim) 300 Mg Tablet, 300 MG PO DAILY, (Reported) Aspirin (Aspirin) 81 Mg Tab.chew, 1 TAB PO DAILY for pain Cholecalciferol (Vitamin D3) (Vitamin D3) 1,000 Unit Tablet, 1,000 UNITS PO DAILY, (Reported) Colchicine (Colcrys) 0.6 Mg Tablet, 0.6 MG PO DAILY, (Reported) Levofloxacin (Levofloxacin) 500 Mg Tablet, 1 TAB PO DAILY Omeprazole (Omeprazole) 20 Mg Capsule.dr, 20 MG PO DAILY, (Reported) Zinc Sulfate (Zinc Sulfate) 220 Mg Capsule, 220 MG PO DAILY, (Reported) Scheduled PRN Zolpidem Tartrate (Zolpidem Tartrate) 5 Mg Tab, 5 MG PO PRN PRN for SLEEP, (Reported) Allergies Coded Allergies: No Known Allergies (Verified , 07/05/12) DUDLEY ABAD DO Mar 07, 2020 17:14
== END 2020-03-07 13:34 | disposition home or self-care (01) | DRG 872 ==
LOC: M ED 07:29 → M ED INP 10:31 → ENRESERV 10:44 → M MSPAV 12:55
PROVIDERS: ADMIT Internal Medicine; ATTEND Internal Medicine
DX: A41.9 Sepsis, unspecified organism (principal); N39.0 Urinary tract infection, site not specified; R19.7 Diarrhea, unspecified; G47.33 Obstructive sleep apnea (adult) (pediatric); Z85.048 Personal history of other malignant neoplasm of rectum, rectosigmoid junction, and anus; M10.9 Gout, unspecified; M19.90 Unspecified osteoarthritis, unspecified site; K57.30 Diverticulosis of large intestine without perforation or abscess without bleeding; Z79.82 Long term (current) use of aspirin; Z79.899 Other long term (current) drug therapy; Z87.891 Personal history of nicotine dependence; Z86.718 Personal history of other venous thrombosis and embolism

== ENCOUNTER → 2020-03-16 | Outpatient (REF) | payer MEDICARE, OTHER ==
[~2020-03-16] MED LIST changes: +ASPI81CH33 PO; +COLC1TAB14 PO; +D31000TA2 PO; +FLOM0.4C39 PO; +LEVO500T3 PO; +OMEP-218 PO; +ZINC220CA PO; +ZYLO300T6 PO
== END ==
LOC: M LAB REF 12:45
PROVIDERS: ATTEND Internal Medicine
DX: N39.0 Urinary tract infection, site not specified (principal)

== ENCOUNTER 2020-03-20 07:50 | Emergency (ER) | payer MEDICARE, OTHER ==
[~2020-03-20] VITALS: Ht 180.3 cm; Wt 105.6 kg
[~2020-03-20 07:50] MED LIST changes: -FLOM0.4C39 PO
[2020-03-20] MEDS ORDERED: LIDOCAINE 2% 5ML JELLY UROJET TOP ONE (08:30)
[2020-03-20] MEDS ORDERED: NS 1,000 ML IV ONE (08:30)
[2020-03-20 09:11] LABS: BASO # 0.1 10^3/uL (0.0-0.2); BASO % 0.6 % (0.0-1.0); EOS # 0.1 10^3/uL (0.0-0.5); EOS % 1.1 % (0.0-3.0); HEMATOCRIT 39.9 % (42.0-52.0); LYMPH # 1.4 10^3/uL (1.5-5.0); LYMPH % 16.8 % (24.0-44.0); MEAN CORPUSCULAR HEMOGLOBIN 31.1 pg (27.0-33.0); MEAN CORPUSCULAR HGB CONC 32.6 g/dl (32.0-36.5); MEAN CORPUSCULAR VOLUME 95.5 fl (80.0-96.0); MONO # 0.8 10^3/uL (0.0-0.8); MONO % 9.9 % (0.0-5.0); NEUTROPHILS # 5.7 10^3/uL (1.5-8.5); NEUTROPHILS % 71.1 % (36.0-66.0); PLATELET COUNT, AUTOMATED 293 10^3/uL (150-450); RED BLOOD COUNT 4.18 10^6/uL (4.30-6.10)
[2020-03-20 09:36] LABS: BLOOD UREA NITROGEN 10 MG/DL (7-18); CALCIUM LEVEL 8.9 MG/DL (8.8-10.2); CARBON DIOXIDE LEVEL 27 MEQ/L (21-32); CHLORIDE LEVEL 105 MEQ/L (98-107); CREATININE FOR GFR 0.88 MG/DL (0.70-1.30); GLOMERULAR FILTRATION RATE > 60.0 (>42); GLUCOSE, FASTING 107 MG/DL (70-100); POTASSIUM SERUM 3.6 MEQ/L (3.5-5.1); SODIUM LEVEL 140 MEQ/L (136-145)
[2020-03-20] MEDS ORDERED: FLOM0.4C39 PO (10:45)
[2020-03-20 11:08] VITALS: BP 180/90
== END 2020-03-20 11:13 | disposition home or self-care (01) ==
LOC: M ED 07:50
DX: N40.1 Benign prostatic hyperplasia with lower urinary tract symptoms (principal); R33.9 Retention of urine, unspecified; Z79.899 Other long term (current) drug therapy; Z79.82 Long term (current) use of aspirin

== ENCOUNTER → 2020-04-12 | Outpatient (REF) | payer MEDICARE, OTHER ==
[~2020-04-12] MED LIST changes: +FLOM0.4C39 PO
== END ==
LOC: M SMT 17:29
PROVIDERS: ATTEND Urology
DX: D49.4 Neoplasm of unspecified behavior of bladder (principal); R31.0 Gross hematuria

== ENCOUNTER → 2020-04-27 | Outpatient (REF) | payer MEDICARE, OTHER ==
[~2020-04-27] MED LIST changes: +MULT-40 PO
[2020-04-27 13:47] LABS: INR 0.94; PARTIAL THROMBOPLASTIN TIME 27.8 SECONDS (24.2-38.5); PROTHROMBIN TIME 12.8 SECONDS (12.5-14.3)
== END ==
LOC: M LAB REF 12:06
PROVIDERS: ATTEND Internal Medicine
DX: Z01.818 Encounter for other preprocedural examination (principal)

== ENCOUNTER → 2020-05-06 | Outpatient (CLI) | payer MEDICARE, OTHER | LOC: M LABSMTC 10:42 | PROVIDERS: ATTEND Anesthesiology | DX: Z01.812 Encounter for preprocedural laboratory examination (principal); Z20.828 Contact with and (suspected) exposure to other viral communicable diseases ==

== ENCOUNTER 2020-05-10 11:25 | Day surgery (SDC) | payer MEDICARE, OTHER ==
[~2020-05-10] VITALS: Ht 180.3 cm; Wt 102.2 kg
[~2020-05-10 11:25] MED LIST changes: +LR 1,000 ML IV ONE
[2020-05-10] MEDS ORDERED: ceFAZolin SOD 2 GM in IV 1 EA IV ONE (12:15)
[2020-05-10] MEDS ORDERED: fentaNYL 250 MCG/5 ML INJECTION (J3010) As Ordered ONE (13:32)
[2020-05-10] MEDS ORDERED: MIDAZOLAM INJ 2MG/2ML VIAL (J2250 PER 1MG) As Ordered ONE (13:32)
[2020-05-10] MEDS ORDERED: SUGAMMADEX SODIUM 500 MG/5 ML VIAL (BRIDION) As Ordered ONE (13:32)
[2020-05-10] MEDS ORDERED: ROCURONIUM BROMIDE 50 MG/5 ML VIAL As Ordered ONE (13:32)
[2020-05-10] MEDS ORDERED: LIDOCAINE 2% 100MG/5ML SDV (FOR ANES.) As Ordered ONE (13:32)
[2020-05-10] MEDS ORDERED: dexameTHASONE 4 MG/ML 1ML VIAL (J1100 PER 1MG) As Ordered ONE (13:32)
[2020-05-10] MEDS ORDERED: propofoL 200 MG/20 ML VIAL As Ordered ONE (13:32)
[2020-05-10] MEDS ORDERED: ONDANSETRON 4MG/2ML VIAL As Ordered ONE (13:32)
[2020-05-10] MEDS ORDERED: METOCLOPRAMIDE INJ 10MG/2ML VIAL (J2765 PER 1) As Ordered ONE (13:32)
[2020-05-10] MEDS ORDERED: oxyCODONE 5MG TAB PO PRN (14:45)
[2020-05-10] MEDS ORDERED: ONDANSETRON 4MG/2ML VIAL IV PRN (14:45)
[2020-05-10] MEDS ORDERED: fentaNYL 100 MCG/2 ML INJECTION (J3010) IV PRN (14:45)
[2020-05-10] MEDS ORDERED: LR 1,000 ML IV SCH (14:45)
[2020-05-10] MEDS ORDERED: ACETAMINOPHEN TAB 650MG DOSE (2X325MG) PO PRN (14:45)
--- NOTE | 2020-05-10 15:03 | RO ---
OPERATIVE NOTE DATE OF OPERATION: 05/10/2020 PREOPERATIVE DIAGNOSIS: Bladder cancer. POSTOPERATIVE DIAGNOSIS: Bladder cancer. PROCEDURE: Cystoscopy, bladder biopsy. SURGEON: González Houston MD [employer] OPERATOR: None. ANESTHESIA: General. OPERATIVE INDICATIONS: This is a 70-year-old male who was found to have a bladder tumor on cystoscopy in the office. 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 He is brought to the operating room today to ensure that the entire tumor had been removed. DESCRIPTION OF PROCEDURE: The patient was brought to the operating room and general anesthesia was induced. Prophylactic antibiotics were used. He was placed in dorsal lithotomy position and prepped and draped in usual sterile fashion. Rigid cystoscope was inserted in the urethral meatus and advanced into the bladder. The bladder was thoroughly examined with both 30 and 70-degree lenses. No tumors were seen inside the bladder. Of note, scar from what appeared to be previous bladder tumor biopsy was seen on the right posterior wall. I then biopsied this with cold cup biopsy forceps. This was sent off as biopsy of bladder tumor base. I did make sure to biopsy deep into the muscle layer. I then cauterized the base of biopsy site with Bugbee. Once satisfied with hemostasis the bladder was emptied of all fluids and this marked the conclusion of the procedure. The patient was taken out of the dorsal lithotomy position, awakened from anesthesia and transported to the recovery room in stable condition. ESTIMATED BLOOD LOSS: 5 mL. COMPLICATIONS: None. SPECIMEN: Biopsy of bladder tumor base. PLAN: The patient will follow up in urology clinic next week for postoperative visit. VALARIE
[2020-05-10 15:15] VITALS: BP 156/77
== END 2020-05-10 16:13 | disposition home or self-care (01) ==
LOC: M SDC 11:25
PROVIDERS: ATTEND Urology
DX: C67.9 Malignant neoplasm of bladder, unspecified (principal); E78.00 Pure hypercholesterolemia, unspecified; I10 Essential (primary) hypertension; I81 Portal vein thrombosis; G47.33 Obstructive sleep apnea (adult) (pediatric); K21.9 Gastro-esophageal reflux disease without esophagitis; K75.81 Nonalcoholic steatohepatitis (NASH); M10.9 Gout, unspecified; M12.9 Arthropathy, unspecified; R73.09 Other abnormal glucose; Z79.82 Long term (current) use of aspirin; Z79.899 Other long term (current) drug therapy; Z85.038 Personal history of other malignant neoplasm of large intestine; Z86.711 Personal history of pulmonary embolism
CPT/HCPCS: 52204; 88305; J0690; J1100; J2250; J2405; J2765; J3010

== ENCOUNTER → 2020-06-28 | Outpatient (REF) | payer MEDICARE, OTHER ==
[~2020-06-28] MED LIST changes: -LR 1,000 ML IV ONE
[2020-06-29 19:07] LABS: TESTOSTERONE FREE (DIRECT) 9.8 pg/mL (6.6-18.1)
== END ==
LOC: M LAB REF 11:17
PROVIDERS: ATTEND Internal Medicine
DX: R53.83 Other fatigue (principal)

== ENCOUNTER → 2020-09-18 | Outpatient (REF) | payer MEDICARE, OTHER | LOC: M SMT 17:59 | PROVIDERS: ATTEND Urology | DX: C67.9 Malignant neoplasm of bladder, unspecified (principal) ==

== ENCOUNTER → 2020-10-14 | Outpatient (CLI) | payer MEDICARE, OTHER ==
[~2020-10-14] MED LIST changes: +OMEG1CAP16 PO; +[UNRECOGNIZED DRUG - REMARK] PO
== END ==
LOC: M LABSMTC 08:39
PROVIDERS: ATTEND Anesthesiology
DX: Z01.812 Encounter for preprocedural laboratory examination (principal); Z20.822 Contact with and (suspected) exposure to COVID-19

== ENCOUNTER 2020-10-19 08:25 | Day surgery (SDC) | payer MEDICARE, OTHER ==
[~2020-10-19] VITALS: Ht 180.3 cm; Wt 105.9 kg
[~2020-10-19 08:25] MED LIST changes: +BSS IRR 500ML/OMIDRIA 4ML IRR BAG (OR ONLY) As Ordered ONE; +CEFUROXIME 1MG/0.1ML INTRACAMERAL INJ As Ordered ONE; +DUOVISC (0.50ML VISCOAT/0.55ML PROVISC) OPHTH KIT As Ordered ONE; +MIDAZOLAM INJ 2MG/2ML VIAL (J2250 PER 1MG) As Ordered ONE; +OFLOXACIN 0.3 % (OCUFLOX) OPTH SOL 5ML OS ONE; +PHENYLEPHRINE 2.5% OPHTH SOL 2ML OS ONE; +PROPARACAINE 0.5% OPHTH SOL 15ML OS ONE; +TROPICAMIDE 1% OPHTH SOLN 2ML OS ONE; +fentaNYL 100 MCG/2 ML INJECTION (J3010) As Ordered ONE
[2020-10-19] MEDS ORDERED: POVIDONE-IODINE 5% OPHTH PREP SOL 30ML As Ordered ONE (09:56)
[2020-10-19] MEDS: POVIDONE-IODINE 5% OPHTH PREP SOL 30ML As Ordered ONE ×2 (10:12→10:21)
[2020-10-19] MEDS ORDERED: ONDANSETRON 4MG/2ML VIAL IV PRN (10:40)
[2020-10-19 10:50] VITALS: BP 128/66
[2020-10-19] MEDS ORDERED: HYDROMORPHONE HCL 0.5 MG/ 0.5 ML SYRINGE (J1170 PER 1) IV ONE (11:00)
--- NOTE | 2020-10-20 09:24 | RO ---
OPERATIVE NOTE DATE OF OPERATION: 10/19/2020 PREOPERATIVE DIAGNOSIS: 1. Visually significant nuclear sclerotic cataract, left eye. POSTOPERATIVE DIAGNOSIS: 1. Visually significant nuclear sclerotic cataract, left eye. PROCEDURE: 1. Cataract extraction with use of phacoemulsification, and placement of intraocular lens, AU00T0, 18.5 D, left eye. SURGEON: Neptali Fatima DO ANESTHESIA: Local (Omidria with MAC) COMPLICATIONS: None POSTOPERATIVE CONDITION: Stable INDICATIONS FOR SURGERY: 1. Blurred vision affecting patient's activities of daily living. DESCRIPTION OF PROCEDURE: The patient was seen in the preoperative area and properly identified. The correct operative eye was identified and marked. The patient received topical anesthetic, antibiotics, and topical dilating drops. The patient was then transferred to the operating room. The correct side was re-identified and a time-out was performed. The eye was prepped and draped in a sterile fashion. The eyelids were isolated with Tegaderm tape and the lids were held open with an adjustable speculum. A 1.0mm paracentesis incision was made. Omidria was then injected into the anterior chamber. Viscoelastic was then injected into the anterior chamber through the paracentesis. Using a 2.4mm sharp-tipped keratome, the anterior chamber was entered via a temporal clear cornea incision. A continuous curvilinear capsulorrhexis was created with Utrata forceps. Hydrodissection was performed with BSS on a blunt cannula until the nucleus was able to rotate freely. The crystalline lens was phacoemulsified and aspirated. Irrigation/aspiration was used to remove the cortical material Cohesive viscoelastic was placed into the capsular bag to deepen it. The implant was placed into the capsular bag and allowed to unfold. Placement was confirmed by visualizing the anterior capsulorrhexis. Irrigation/aspiration was used to remove the viscoelastic. The clear corneal incision was hydrated with BSS on a blunt cannula. The lens was well positioned. Intracameral antibiotic was injected into the anterior chamber. The incisions were then tested for leaks and found to be negative. The eye was then palpated for appropriate pressure and adjusted accordingly with BSS. The eyelid speculum was then carefully removed. A shield was placed over the eye. The patient tolerated the procedure well and was discharge to the recovery unit in a stable condition.
== END 2020-10-19 11:00 | disposition home or self-care (01) ==
LOC: M SDC 08:25
PROVIDERS: ATTEND Ophthalmology
DX: H25.12 Age-related nuclear cataract, left eye (principal); M10.9 Gout, unspecified; Z85.038 Personal history of other malignant neoplasm of large intestine; Z86.79 Personal history of other diseases of the circulatory system; M16.12 Unilateral primary osteoarthritis, left hip; G47.30 Sleep apnea, unspecified; N40.0 Benign prostatic hyperplasia without lower urinary tract symptoms; Z85.51 Personal history of malignant neoplasm of bladder; Z87.891 Personal history of nicotine dependence; Z79.899 Other long term (current) drug therapy; Z79.82 Long term (current) use of aspirin
CPT/HCPCS: 66984; J1097; J2250; J3010; V2632

== ENCOUNTER → 2020-10-28 | Outpatient (CLI) | payer MEDICARE, OTHER ==
[~2020-10-28] MED LIST changes: -BSS IRR 500ML/OMIDRIA 4ML IRR BAG (OR ONLY) As Ordered ONE; -CEFUROXIME 1MG/0.1ML INTRACAMERAL INJ As Ordered ONE; -DUOVISC (0.50ML VISCOAT/0.55ML PROVISC) OPHTH KIT As Ordered ONE; -MIDAZOLAM INJ 2MG/2ML VIAL (J2250 PER 1MG) As Ordered ONE; -OFLOXACIN 0.3 % (OCUFLOX) OPTH SOL 5ML OS ONE; -PHENYLEPHRINE 2.5% OPHTH SOL 2ML OS ONE; -PROPARACAINE 0.5% OPHTH SOL 15ML OS ONE; -TROPICAMIDE 1% OPHTH SOLN 2ML OS ONE; -fentaNYL 100 MCG/2 ML INJECTION (J3010) As Ordered ONE
== END ==
LOC: M LABSMTC 09:15
PROVIDERS: ATTEND Anesthesiology
DX: Z01.812 Encounter for preprocedural laboratory examination (principal); Z11.52 Encounter for screening for COVID-19

== ENCOUNTER 2020-11-02 10:04 | Day surgery (SDC) | payer MEDICARE, OTHER ==
[~2020-11-02] VITALS: Ht 210.8 cm; Wt 104.8 kg
[~2020-11-02 10:04] MED LIST changes: +CEFUROXIME 1MG/0.1ML INTRACAMERAL INJ As Ordered ONE; +DUOVISC (0.50ML VISCOAT/0.55ML PROVISC) OPHTH KIT As Ordered ONE; +OFLOXACIN 0.3 % (OCUFLOX) OPTH SOL 5ML OD ONE; +PHENYLEPHRINE 2.5% OPHTH SOL 2ML OD ONE; +POVIDONE-IODINE 5% OPHTH PREP SOL 30ML As Ordered ONE; +PROPARACAINE 0.5% OPHTH SOL 15ML OD ONE; +TROPICAMIDE 1% OPHTH SOLN 2ML OD ONE
[2020-11-02] MEDS ORDERED: MIDAZOLAM INJ 2MG/2ML VIAL (J2250 PER 1MG) As Ordered ONE (12:28)
[2020-11-02] MEDS ORDERED: BSS IRR 500ML/OMIDRIA 4ML IRR BAG (OR ONLY) As Ordered ONE (12:57)
[2020-11-02 13:26] VITALS: BP 164/87
--- NOTE | 2020-11-09 14:15 | RO ---
OPERATIVE NOTE DATE OF OPERATION: 11/02/2020 PREOPERATIVE DIAGNOSIS: 1. Visually significant nuclear sclerotic cataract, right eye. POSTOPERATIVE DIAGNOSIS: 1. Visually significant nuclear sclerotic cataract, right eye. PROCEDURE: 1. Cataract extraction with use of phacoemulsification, and placement of intraocular lens, AU00T0, 18.0 D, right eye. SURGEON: Neptali Fatima DO MINESWEEPING OFFICER: ANESTHESIA: Local (Omidria) with MAC. COMPLICATIONS: None POSTOPERATIVE CONDITION: Stable INDICATIONS FOR SURGERY: 1. Blurred vision affecting patient's activities of daily living. DESCRIPTION OF PROCEDURE: The patient was seen in the preoperative area and properly identified. The correct operative eye was identified and marked. The patient received topical anesthetic, antibiotics, and topical dilating drops. The patient was then transferred to the operating room. The correct side was re-identified and a time out was performed. The eye was prepped and draped in a sterile fashion. The eyelids were isolated with Tegaderm tape and the lids were held open with an adjustable speculum. A 1.0 mm paracentesis incision was made. Omidria was then injected into the anterior chamber. Viscoelastic was then injected into the anterior chamber through the paracentesis. Using a 2.4 mm sharp-tipped keratome, the anterior chamber was entered via a temporal clear cornea incision. A continuous curvilinear capsulorrhexis was created with Utrata forceps. Hydrodissection was performed with BSS on a blunt cannula until the nucleus was able to rotate freely. The crystalline lens was phacoemulsified and aspirated. Irrigation/aspiration was used to remove the cortical material Cohesive viscoelastic was placed into the capsular bag to deepen it. The implant was placed into the capsular bag and allowed to unfold. Placement was confirmed by visualizing the anterior capsulorrhexis. Irrigation/aspiration was used to remove the viscoelastic. The clear corneal incision was hydrated with BSS on a blunt cannula. The lens was well positioned. Intracameral antibiotic was injected into the anterior chamber. The incisions were then tested for leaks and found to be negative. The eye was then palpated for appropriate pressure and adjusted accordingly with BSS. The eyelid speculum was then carefully removed. A shield was placed over the eye. The patient tolerated the procedure well and was discharge to the recovery unit in a stable condition.
== END 2020-11-02 13:44 | disposition home or self-care (01) ==
LOC: M SDC 10:04
PROVIDERS: ATTEND Ophthalmology
DX: H25.11 Age-related nuclear cataract, right eye (principal); M10.9 Gout, unspecified; Z85.038 Personal history of other malignant neoplasm of large intestine; Z86.718 Personal history of other venous thrombosis and embolism; M16.12 Unilateral primary osteoarthritis, left hip; R56.9 Unspecified convulsions; G47.30 Sleep apnea, unspecified; R06.83 Snoring; N40.0 Benign prostatic hyperplasia without lower urinary tract symptoms; Z87.891 Personal history of nicotine dependence; Z85.51 Personal history of malignant neoplasm of bladder; Z79.899 Other long term (current) drug therapy; Z79.82 Long term (current) use of aspirin
CPT/HCPCS: 66984; J1097; J2250; V2632

== ENCOUNTER → 2021-02-06 | Outpatient (REF) | payer MEDICARE ==
[~2021-02-06] MED LIST changes: -CEFUROXIME 1MG/0.1ML INTRACAMERAL INJ As Ordered ONE; -DUOVISC (0.50ML VISCOAT/0.55ML PROVISC) OPHTH KIT As Ordered ONE; -OFLOXACIN 0.3 % (OCUFLOX) OPTH SOL 5ML OD ONE; -PHENYLEPHRINE 2.5% OPHTH SOL 2ML OD ONE; -POVIDONE-IODINE 5% OPHTH PREP SOL 30ML As Ordered ONE; -PROPARACAINE 0.5% OPHTH SOL 15ML OD ONE; -TROPICAMIDE 1% OPHTH SOLN 2ML OD ONE
== END ==
LOC: M SMT 17:52
PROVIDERS: ATTEND Urology
DX: C67.9 Malignant neoplasm of bladder, unspecified (principal)

== ENCOUNTER → 2021-04-02 | Outpatient (CLI) | payer MEDICARE, OTHER ==
[~2021-04-02] MED LIST changes: +ISOVUE-300 61% 50ML VIAL As Ordered ONE; +LIDOCAINE 1% MDV 20ML VIAL As Ordered ONE; +methylPREDNISolone 80MG/ML SUSP 1ML VIAL (J1040) As Ordered ONE
--- NOTE | 2021-04-02 16:46 | REP ---
INDICATION: LT HIP PAIN. COMPARISON: None. TECHNIQUE: The procedure was performed under the direct supervision of Dr. Mari. The benefits and risks including but not limited to pain infection and bleeding and anaphylaxis were explained to the patient and informed consent was obtained. The left femoral neck was localized using fluoroscopic guidance. The skin was prepped and draped in a sterile fashion. 1% lidocaine was used as a local anesthetic. Using fluoroscopic guidance, and last image hold technology, a 22-gauge spinal needle was inserted and advanced to the femoral neck. 0.5 ml of Isovue-300 was injected to verify placement. Six ml of a solution containing 5 ml of 1% Xylocaine and 1 mL of Depo-Medrol 80 mg was injected. The needle was then removed. The patient tolerated the procedure well and there were no immediate complications. Less than 6 seconds of fluoro time was utilized for this procedure. FINDINGS: None IMPRESSION: Fluoro guidance for left hip injection. <Electronically signed by Abdiel Davila > 04/02/21 1613 <Electronically signed by Geronimo Mari > 04/02/21 0419
== END ==
LOC: M RADPRO 12:40
PROVIDERS: ATTEND Physician Assistant Surgical
DX: M25.552 Pain in left hip (principal)
CPT/HCPCS: 20610; 77002; J1040; Q9967

== ENCOUNTER → 2021-05-17 | Outpatient (CLI) | payer MEDICARE, OTHER ==
[~2021-05-17] MED LIST changes: -ISOVUE-300 61% 50ML VIAL As Ordered ONE; -LEVO500T3 PO; +LEVO500T4 PO; -LIDOCAINE 1% MDV 20ML VIAL As Ordered ONE; -methylPREDNISolone 80MG/ML SUSP 1ML VIAL (J1040) As Ordered ONE
== END ==
LOC: M LABSMTC 10:33
PROVIDERS: ATTEND Pediatrics
DX: Z11.52 Encounter for screening for COVID-19 (principal); Z20.822 Contact with and (suspected) exposure to COVID-19
CPT/HCPCS: C9803; U0003

== ENCOUNTER → 2021-06-15 | Outpatient (REF) | payer MEDICARE, OTHER ==
[~2021-06-15] MED LIST changes: +OMEP-173 PO; -OMEP-218 PO
== END ==
LOC: M SMT 17:13
PROVIDERS: ATTEND Urology
DX: C67.9 Malignant neoplasm of bladder, unspecified (principal)

== ENCOUNTER → 2021-07-16 | Outpatient (CLI) | payer MEDICARE, OTHER ==
[~2021-07-16] MED LIST changes: -D31000TA2 PO; +ISOVUE-300 61% 50ML VIAL As Ordered ONE; +LIDOCAINE 1% MDV 20ML VIAL As Ordered ONE; +VITA100093 PO; +methylPREDNISolone 80MG/ML SUSP 1ML VIAL (J1040) As Ordered ONE
== END ==
LOC: M RADPRO 13:42
PROVIDERS: ATTEND Orthopaedic Surgery
DX: M25.552 Pain in left hip (principal)
CPT/HCPCS: 20610; 77002; J1040; Q9967

== ENCOUNTER → 2021-07-18 | Outpatient (REF) | payer MEDICARE, OTHER ==
[~2021-07-18] MED LIST changes: -ISOVUE-300 61% 50ML VIAL As Ordered ONE; -LIDOCAINE 1% MDV 20ML VIAL As Ordered ONE; -methylPREDNISolone 80MG/ML SUSP 1ML VIAL (J1040) As Ordered ONE
== END ==
LOC: M LAB REF 11:12
PROVIDERS: ATTEND Internal Medicine
DX: R19.7 Diarrhea, unspecified (principal)

== ENCOUNTER → 2021-09-04 | Outpatient (CLI) | payer MEDICARE, OTHER | LOC: M WUC 13:43 | PROVIDERS: ATTEND Internal Medicine | DX: R05.3 Chronic cough (principal) ==

== ENCOUNTER → 2021-09-19 | Outpatient (CLI) | payer MEDICARE, OTHER ==
[~2021-09-19] MED LIST changes: +E-Z-GAS II EFFERVESCENT PACKET (SODIUM BICARB./CITRIC ACID/SIMETHICONE) As Ordered ONE; +E-Z-HD 98% w/w 340GM SUSP BTL As Ordered ONE; +E-Z-PAQUE 96% w/w SUSP 176GM BTL As Ordered ONE
== END ==
LOC: M RAD 09:23
PROVIDERS: ATTEND Internal Medicine
DX: K21.9 Gastro-esophageal reflux disease without esophagitis (principal)

== ENCOUNTER → 2021-11-14 | Outpatient (CLI) | payer MEDICARE, OTHER ==
[~2021-11-14] MED LIST changes: -E-Z-GAS II EFFERVESCENT PACKET (SODIUM BICARB./CITRIC ACID/SIMETHICONE) As Ordered ONE; -E-Z-HD 98% w/w 340GM SUSP BTL As Ordered ONE; -E-Z-PAQUE 96% w/w SUSP 176GM BTL As Ordered ONE; +ISOVUE-300 61% 50ML VIAL As Ordered ONE; +LIDOCAINE 1% MDV 20ML VIAL As Ordered ONE; +methylPREDNISolone 80MG/ML SUSP 1ML VIAL (J1040) As Ordered ONE
== END ==
LOC: M RADPRO 15:01
PROVIDERS: ATTEND Physician Assistant Surgical
DX: M16.11 Unilateral primary osteoarthritis, right hip (principal); M25.552 Pain in left hip
CPT/HCPCS: 20610; 76000; 82728; 83550; J1040; Q9967

== ENCOUNTER → 2021-11-14 | Outpatient (REF) | payer MEDICARE, OTHER ==
[~2021-11-14] MED LIST changes: -ISOVUE-300 61% 50ML VIAL As Ordered ONE; -LIDOCAINE 1% MDV 20ML VIAL As Ordered ONE; -methylPREDNISolone 80MG/ML SUSP 1ML VIAL (J1040) As Ordered ONE
[2021-11-14 17:22] LABS: PERCENT SATURATION 29.1 % (19.7-50.0)
== END ==
LOC: M LAB REF 16:25
PROVIDERS: ATTEND Internal Medicine
DX: M16.9 Osteoarthritis of hip, unspecified (principal); M25.552 Pain in left hip

== ENCOUNTER → 2021-12-17 | Outpatient (REF) | payer MEDICARE, OTHER ==
[~2021-12-17] MED LIST changes: +LEVO1TAB39 PO; -LEVO500T4 PO
== END ==
LOC: M SMT 13:03
PROVIDERS: ATTEND Urology
DX: C67.9 Malignant neoplasm of bladder, unspecified (principal)

== ENCOUNTER → 2021-12-25 | Outpatient (REF) | payer MEDICARE, OTHER ==
[2021-12-25 18:57] LABS: APPEARANCE, URINE MANUAL CLEAR (CLEAR); COLOR, URINE MANUAL DK YELLOW (YELLOW); PROTEIN, URINE MANUAL 1+ mg/dL (NEGATIVE); SPECIFIC GRAVITY,URINE MANUAL 1.005 (1.002-1.035)
[2021-12-25 18:58] LABS: BILIRUBIN, URINE MANUAL NEGATIVE (NEGATIVE); BLOOD URINE MANUAL NEGATIVE (NEGATIVE); GLUCOSE, URINE (UA) MANUAL NEGATIVE (NEGATIVE); KETONE, URINE MANUAL NEGATIVE (NEGATIVE); LEUKOCYTE ESTERASE, URINE MAN NEGATIVE (NEGATIVE); NITRITE, URINE MANUAL NEGATIVE (NEGATIVE); UROBILINOGEN, URINE MANUAL NORMAL (NORMAL)
[2021-12-25 19:34] LABS: SQUAMOUS EPITHELIAL CELL URINE SMALL AMOUNT /hpf (SMALL AMT)
[2021-12-25 19:35] LABS: BACTERIA, URINE SMALL AMOUNT; HYALINE CAST, URINE NONE SEEN /lpf (0-1); MUCUS, URINE SMALL AMOUNT (NEGATIVE)
== END ==
LOC: M SMT 16:55
PROVIDERS: ATTEND Urology
DX: R30.0 Dysuria (principal)

== ENCOUNTER → 2022-02-21 | Outpatient (REF) | payer MEDICARE, OTHER ==
[2022-02-21 11:34] LABS: APPEARANCE, URINE MANUAL CLEAR (CLEAR); COLOR, URINE MANUAL YELLOW (YELLOW)
[2022-02-21 11:35] LABS: BILIRUBIN, URINE MANUAL NEGATIVE (NEGATIVE); BLOOD URINE MANUAL NEGATIVE (NEGATIVE); GLUCOSE, URINE (UA) MANUAL NEGATIVE (NEGATIVE); KETONE, URINE MANUAL NEGATIVE (NEGATIVE); LEUKOCYTE ESTERASE, URINE MAN NEGATIVE (NEGATIVE); NITRITE, URINE MANUAL NEGATIVE (NEGATIVE); PROTEIN, URINE MANUAL NEGATIVE (NEGATIVE); UROBILINOGEN, URINE MANUAL NORMAL (NORMAL)
== END ==
LOC: M LAB REF 11:17
PROVIDERS: ATTEND Internal Medicine
DX: Z01.818 Encounter for other preprocedural examination (principal); E79.0 Hyperuricemia without signs of inflammatory arthritis and tophaceous disease; M25.552 Pain in left hip; Z79.899 Other long term (current) drug therapy

== ENCOUNTER → 2022-07-15 | Outpatient (REF) | payer MEDICARE, OTHER | LOC: M SMT 13:05 | PROVIDERS: ATTEND Urology | DX: C67.9 Malignant neoplasm of bladder, unspecified (principal); N40.1 Benign prostatic hyperplasia with lower urinary tract symptoms; N13.8 Other obstructive and reflux uropathy | CPT/HCPCS: 52000; 88108; G0463 ==

== ENCOUNTER → 2023-02-18 | Outpatient (REF) | payer MEDICARE, OTHER | LOC: M SMT 17:10 | PROVIDERS: ATTEND Urology | DX: C67.9 Malignant neoplasm of bladder, unspecified (principal) ==

== ENCOUNTER → 2023-03-10 | Outpatient (REF) | payer MEDICARE, OTHER ==
[2023-03-10 18:08] LABS: AMORPHOUS SEDIMENT SMALL (NEGATIVE); APPEARANCE, URINE TURBID (CLEAR); BACTERIA, URINE AUTO 1+ (NEGATIVE); BILIRUBIN, URINE AUTO NEGATIVE (NEGATIVE); BLOOD, URINE BLOOD NEGATIVE (NEGATIVE); COLOR, URINE AMBER (YELLOW); GLUCOSE, URINE (UA) AUTO NEGATIVE (NEGATIVE); KETONE, URINE AUTO TRACE mg/dL (NEGATIVE); LEUKOCYTE ESTERASE, URINE AUTO 3+ (NEGATIVE); MUCUS, URINE SMALL (NEGATIVE); NITRITE, URINE AUTO NEGATIVE (NEGATIVE); PROTEIN, URINE AUTO 1+ mg/dL (NEGATIVE); RBC, URINE AUTO 1 /HPF (0-3); SPECIFIC GRAVITY URINE AUTO 1.027 (1.002-1.035); SQUAMOUS EPITHELIAL CELL UR AU 0 /HPF (0-6); WBC, URINE AUTO 65 /HPF (0-3)
== END ==
LOC: M SMT 16:48
PROVIDERS: ATTEND Urology
DX: R35.0 Frequency of micturition (principal)

== ENCOUNTER → 2023-03-26 | Outpatient (CLI) | payer MEDICARE, OTHER | LOC: M WUC 09:12 | PROVIDERS: ATTEND Internal Medicine | DX: Z85.51 Personal history of malignant neoplasm of bladder (principal); M47.14 Other spondylosis with myelopathy, thoracic region ==

== ENCOUNTER 2023-10-15 09:30 | Day surgery (SDC) | payer MEDICARE, OTHER ==
[~2023-10-15] VITALS: Ht 180.3 cm; Wt 101.3 kg
[~2023-10-15 09:30] MED LIST changes: +ALLO10TA PO; +AMBI5TAB PO; +LOMO2.5T PO; +OMEP40CA4 PO; +prevagen PO
[2023-10-15] MEDS: NS 1,000 ML IV ONE (09:53)
[2023-10-15] MEDS ORDERED: LIDOCAINE 2% 100MG/5ML SDV (FOR ANES.) As Ordered ONE (10:39)
[2023-10-15] MEDS ORDERED: propofoL 200 MG/20 ML VIAL As Ordered ONE (10:39)
[2023-10-15 11:00] VITALS: TEMP 97.2
[2023-10-15 11:22] VITALS: BP 137/73; O2SAT 95
== END 2023-10-15 11:23 | disposition home or self-care (01) ==
LOC: M OPP 09:30
PROVIDERS: ATTEND Internal Medicine Gastroenterology
DX: Z12.11 Encounter for screening for malignant neoplasm of colon (principal); Z85.038 Personal history of other malignant neoplasm of large intestine; Z83.718 Family history of other colon polyps; K64.0 First degree hemorrhoids; K57.30 Diverticulosis of large intestine without perforation or abscess without bleeding; Z98.0 Intestinal bypass and anastomosis status; G47.30 Sleep apnea, unspecified; Z79.82 Long term (current) use of aspirin; Z79.899 Other long term (current) drug therapy

== ENCOUNTER → 2023-10-20 | Outpatient (REF) | payer MEDICARE, OTHER | LOC: M LAB REF 15:23 | PROVIDERS: ATTEND Internal Medicine | DX: Z08 Encounter for follow-up examination after completed treatment for malignant neoplasm (principal); Z85.038 Personal history of other malignant neoplasm of large intestine ==

== ENCOUNTER 2024-02-16 10:47 | Inpatient (IN) | payer MEDICARE, OTHER ==
[2024-02-16] VITALS (7 sets, daily range): BP systolic 153–182; BP diastolic 76–93; TEMP 96.9–97.1; O2SAT 94–96
[~2024-02-16] VITALS: Ht 180.3 cm; Wt 104.5 kg
[2024-02-16] MEDS ORDERED: ISOVUE-370 76% 100ML VIAL As Ordered ONE (11:08)
[2024-02-16 11:28] LABS: BASO % 0.2 % (0.0-1.0); EOS # 0.2 10^3/uL (0.0-0.5); EOS % 2.4 % (0.0-3.0); HEMATOCRIT 46.7 % (42.0-52.0); HEMOGLOBIN 16.1 g/dl (13.5-17.5); LYMPH # 1.6 10^3/uL (1.5-5.0); LYMPH % 25.4 % (24.0-44.0); MEAN CORPUSCULAR HEMOGLOBIN 32.1 pg (27.0-33.0); MEAN CORPUSCULAR HGB CONC 34.5 g/dl (32.0-36.5); MEAN CORPUSCULAR VOLUME 93.2 fl (80.0-96.0); MONO # 0.5 10^3/uL (0.0-0.8); MONO % 7.9 % (2.0-8.0); NEUTROPHILS % 63.8 % (36.0-66.0); PLATELET COUNT, AUTOMATED 199 10^3/uL (150-450); RED BLOOD COUNT 5.01 10^6/uL (4.30-6.10); WHITE BLOOD COUNT 6.2 10^3/uL (4.0-10.0)
[2024-02-16 11:43] LABS: INR 1.04; PARTIAL THROMBOPLASTIN TIME 25.7 SECONDS (24.8-34.2); PROTHROMBIN TIME 13.3 SECONDS (12.5-14.5)
[2024-02-16 11:58] LABS: BLOOD UREA NITROGEN 10 MG/DL (9-23); CALCIUM LEVEL 9.4 MG/DL (8.3-10.6); CARBON DIOXIDE LEVEL 28 MMOL/L (20-31); CHLORIDE LEVEL 105 MMOL/L (98-107); CREATININE FOR GFR 0.95 MG/DL (0.70-1.30); GLOMERULAR FILTRATION RATE > 60.0 (>42); GLUCOSE, FASTING 109 MG/DL (74-106); POTASSIUM SERUM 3.9 MMOL/L (3.5-5.1); SODIUM LEVEL 141 MMOL/L (136-145)
[2024-02-16] MEDS ORDERED: ACETAMINOPHEN 325 MG TAB PO PRN (16:25)
[2024-02-16] MEDS ORDERED: ASPI81TA26 PO (16:28)
[2024-02-16] MEDS ORDERED: FLOM0.4C39 PO (16:28)
[2024-02-16] MEDS ORDERED: HOME MED LIST COMPLETE! XX SCH (16:30)
[2024-02-16 17:18] LABS: HEMOGLOBIN A1c 5.1 % (4.0-6.0)
[2024-02-16] MEDS: CLOPIDOGREL 75 MG TAB PO SCH (18:09)
[2024-02-16] MEDS: ATORVASTATIN 20 MG TAB PO SCH (18:09)
[2024-02-16] MEDS ORDERED: ATORVASTATIN 20 MG TAB PO SCH (21:00)
[2024-02-16] MEDS: hydrALAZINE 20MG/ML 1ML VIAL IV PRN (22:48)
[2024-02-17] MEDS: CAPTOpril 12.5 MG TAB PO SCH (01:55)
[2024-02-17 07:07] LABS: HEMATOCRIT 43.3 % (42.0-52.0); HEMOGLOBIN 14.8 g/dl (13.5-17.5); MEAN CORPUSCULAR HEMOGLOBIN 31.6 pg (27.0-33.0); MEAN CORPUSCULAR HGB CONC 34.2 g/dl (32.0-36.5); MEAN CORPUSCULAR VOLUME 92.5 fl (80.0-96.0); PLATELET COUNT, AUTOMATED 185 10^3/uL (150-450); RED BLOOD COUNT 4.68 10^6/uL (4.30-6.10); WHITE BLOOD COUNT 7.6 10^3/uL (4.0-10.0)
[2024-02-17 07:27] VITALS: TEMP 97
[2024-02-17 07:34] LABS: BLOOD UREA NITROGEN 11 MG/DL (9-23); CALCIUM LEVEL 9.4 MG/DL (8.3-10.6); CARBON DIOXIDE LEVEL 27 MMOL/L (20-31); CHLORIDE LEVEL 105 MMOL/L (98-107); CHOLESTEROL LEVEL 208 MG/DL (<200); CHOLESTEROL RISK RATIO 3.96 (<5); CREATININE FOR GFR 0.87 MG/DL (0.70-1.30); GLOMERULAR FILTRATION RATE > 60.0 (>42); GLUCOSE, FASTING 103 MG/DL (74-106); HDL CHOLESTEROL 52.4 MG/DL (>40); LDL CHOLESTEROL 123.4 MG/DL (<100); NON-HDL-C 155.6 MG/DL; POTASSIUM SERUM 3.7 MMOL/L (3.5-5.1); SODIUM LEVEL 138 MMOL/L (136-145); TRIGLYCERIDES LEVEL 161 MG/DL (<150)
[2024-02-17] MEDS: TAMSULOSIN 0.4 MG CAP PO SCH (09:08)
[2024-02-17] MEDS: OMEPRAZOLE 20MG CAP PO SCH (09:08)
[2024-02-17] MEDS: ASPIRIN 81MG CHEW TABLET PO SCH (09:08)
[2024-02-17 09:09] VITALS: BP 174/82
[2024-02-17] MEDS: allopurinoL 300 MG TAB PO SCH (14:24)
[2024-02-17 15:00] VITALS: BP 172/92; O2SAT 90
[2024-02-17] MEDS ORDERED: ATOR1TAB21 PO (15:07)
[2024-02-17] MEDS ORDERED: CLOP75TA2 PO (15:07)
[2024-02-17] MEDS ORDERED: LISI10TA22 PO (15:07)
== END 2024-02-17 16:55 | DRG 66 ==
LOC: M ED 10:47 → M ED INP 16:25
PROVIDERS: ADMIT Student in an Organized Health Care Education/Training Program; ATTEND Student in an Organized Health Care Education/Training Program
PROC: B246ZZZ Ultrasonography of Right and Left Heart (ICD-10-PCS; principal; 2024-02-17)
DX: I63.9 Cerebral infarction, unspecified (principal); M10.9 Gout, unspecified; G47.33 Obstructive sleep apnea (adult) (pediatric); Z96.653 Presence of artificial knee joint, bilateral; I10 Essential (primary) hypertension; Z79.82 Long term (current) use of aspirin; Z79.899 Other long term (current) drug therapy; Z85.038 Personal history of other malignant neoplasm of large intestine; Z87.891 Personal history of nicotine dependence; Z85.51 Personal history of malignant neoplasm of bladder; N40.1 Benign prostatic hyperplasia with lower urinary tract symptoms; K21.9 Gastro-esophageal reflux disease without esophagitis; E66.9 Obesity, unspecified

== ENCOUNTER 2024-02-17 15:03 | Inpatient (IN) | payer MEDICARE, OTHER ==
[~2024-02-17] VITALS: Ht 180.3 cm; Wt 99.0 kg
[~2024-02-17 15:03] MED LIST changes: +ASPI81TA26 PO
[2024-02-17] MEDS ORDERED: ATOR1TAB21 PO (15:07)
[2024-02-17] MEDS ORDERED: LISI10TA22 PO (15:07)
[2024-02-17] MEDS ORDERED: CLOP75TA2 PO (15:07)
[2024-02-17] MEDS ORDERED: MOM 30ML SUSPENSION UDC PO PRN (16:05)
[2024-02-17] MEDS ORDERED: BISACODYL 10MG SUPP PR PRN (16:05)
[2024-02-17] MEDS ORDERED: ONDANSETRON 4MG TAB PO PRN (16:05)
[2024-02-17] MEDS ORDERED: MAALOX 30 ML SUSP *UDC PO PRN (16:05)
[2024-02-17 17:15] VITALS: BP 160/88; TEMP 97.7; O2SAT 95
[2024-02-17] MEDS: amLODIPine 5 MG TAB PO ONE (18:39)
[2024-02-17 20:00] VITALS: BP 162/88; TEMP 98.6; O2SAT 95
[2024-02-17] MEDS: ATORVASTATIN 20 MG TAB PO SCH (20:10)
[2024-02-17] MEDS: ACETAMINOPHEN 325 MG TAB PO PRN (20:11)
[2024-02-17] MEDS: RAMELTEON 8 MG TAB (ROZEREM) PO PRN (20:31)
[2024-02-17] MEDS: SIMETHICONE 80MG CHEW TAB PO PRN (21:39)
[2024-02-17] MEDS: **hydrALAZINE HCL** 25 MG TAB PO PRN (21:44)
[2024-02-18 04:00] VITALS: BP 152/80; TEMP 98; O2SAT 94
[2024-02-18] MEDS: MULTIVITAMINS/MINERALS THERAP 1 TAB PO SCH (07:34)
[2024-02-18] MEDS: OMEPRAZOLE 20MG CAP PO SCH (07:34)
[2024-02-18] MEDS: CLOPIDOGREL 75 MG TAB PO SCH (07:34)
[2024-02-18] MEDS: allopurinoL 300 MG TAB PO SCH (07:34)
[2024-02-18] MEDS: TAMSULOSIN 0.4 MG CAP PO SCH (07:35)
[2024-02-18] MEDS: ASPIRIN 81MG ENTERIC TABLET PO SCH (07:35)
[2024-02-18] MEDS: amLODIPine 5 MG TAB PO SCH (07:35)
[2024-02-18] MEDS: MIRALAX *UNIT DOSE* 17GM PACKET PO PRN (07:39)
[2024-02-18] MEDS: BISACODYL 5MG TAB PO PRN (07:39)
[2024-02-18 07:48] LABS: BASO % 0.2 % (0.0-1.0); EOS # 0.1 10^3/uL (0.0-0.5); EOS % 0.7 % (0.0-3.0); HEMATOCRIT 45.6 % (42.0-52.0); HEMOGLOBIN 15.3 g/dl (13.5-17.5); LYMPH # 1.7 10^3/uL (1.5-5.0); LYMPH % 20.6 % (24.0-44.0); MEAN CORPUSCULAR HEMOGLOBIN 31.4 pg (27.0-33.0); MEAN CORPUSCULAR HGB CONC 33.6 g/dl (32.0-36.5); MEAN CORPUSCULAR VOLUME 93.6 fl (80.0-96.0); MONO # 0.7 10^3/uL (0.0-0.8); MONO % 8.6 % (2.0-8.0); NEUTROPHILS # 5.7 10^3/uL (1.5-8.5); NEUTROPHILS % 69.4 % (36.0-66.0); PLATELET COUNT, AUTOMATED 213 10^3/uL (150-450); RED BLOOD COUNT 4.87 10^6/uL (4.30-6.10); WHITE BLOOD COUNT 8.2 10^3/uL (4.0-10.0)
[2024-02-18 08:22] LABS: BLOOD UREA NITROGEN 17 MG/DL (9-23); CARBON DIOXIDE LEVEL 26 MMOL/L (20-31); CHLORIDE LEVEL 104 MMOL/L (98-107); GLOMERULAR FILTRATION RATE > 60.0 (>42); GLUCOSE, FASTING 116 MG/DL (74-106); POTASSIUM SERUM 3.8 MMOL/L (3.5-5.1); SODIUM LEVEL 140 MMOL/L (136-145)
[2024-02-18 12:00] VITALS: BP 126/58; TEMP 98.2; O2SAT 93
[2024-02-18] MEDS: SENNA 8.6 MG TAB (SENOKOT) PO SCH (12:00)
[2024-02-18 20:00] VITALS: BP 157/74; TEMP 98.1; O2SAT 98
[2024-02-19 04:00] VITALS: BP 127/65; TEMP 97.8; O2SAT 96
[2024-02-19] MEDS: guaiFENesin ER TABLET 600 MG TAB PO ONE (11:06)
[2024-02-19 12:00] VITALS: BP 145/72; TEMP 98.3; O2SAT 94
[2024-02-19 20:00] VITALS: BP 140/64; TEMP 98.1; O2SAT 95
[2024-02-19] MEDS: TAMSULOSIN 0.4 MG CAP PO SCH (21:22)
[2024-02-19] MEDS: LOMOTIL 2.5MG/0.025MG TABLET PO PRN (21:23)
[2024-02-20 05:00] VITALS: BP 155/67; TEMP 97.2; O2SAT 93
[2024-02-20 12:00] VITALS: BP 111/66; TEMP 97.9; O2SAT 96
[2024-02-20 20:00] VITALS: BP 136/68; TEMP 98; O2SAT 97
[2024-02-21 04:00] VITALS: BP_SYST 129; BP_DIAS 22; BP_DIAS 52; TEMP 97.9; O2SAT 98
[2024-02-21 12:00] VITALS: BP 100/56; TEMP 97.6; O2SAT 95
[2024-02-21 20:00] VITALS: BP 148/75; TEMP 98; O2SAT 95
[2024-02-21] MEDS: guaiFENesin ER TABLET 600 MG TAB PO PRN (21:23)
[2024-02-22 04:00] VITALS: BP 120/63; TEMP 97.6; O2SAT 93
[2024-02-22 12:00] VITALS: TEMP 97; O2SAT 96
[2024-02-22 20:00] VITALS: BP 155/74; TEMP 97.7; O2SAT 98
[2024-02-23 04:00] VITALS: BP 107/53; TEMP 97.4; O2SAT 95
[2024-02-23 08:55] VITALS: BP 141/65
[2024-02-23 12:00] VITALS: BP 115/55; TEMP 97.7; O2SAT 100
[2024-02-23] MEDS ORDERED: ATOR1TAB21 PO (14:57)
[2024-02-23] MEDS ORDERED: CLOP75TA2 PO (14:57)
[2024-02-23] MEDS ORDERED: RAME8TAB2 PO (14:57)
[2024-02-23] MEDS ORDERED: ACET32TAB PO (14:57)
[2024-02-23] MEDS ORDERED: AMLO1TAB24 PO (14:57)
[2024-02-23] MEDS ORDERED: FLOM0.4C39 PO (14:57)
[2024-02-23] MEDS ORDERED: HYDR-3490 PO (14:57)
[2024-02-23] MEDS: LOPERAMIDE 2 MG CAPLET PO PRN (19:59)
[2024-02-23 20:00] VITALS: BP 149/75; TEMP 98.1; O2SAT 93
[2024-02-24 04:00] VITALS: BP 124/63; TEMP 98.3; O2SAT 96
[2024-02-24 07:47] VITALS: BP 124/63
== END 2024-02-24 09:40 | disposition home or self-care (01) | DRG 65 ==
LOC: M PM&R 17:00
PROVIDERS: ADMIT Physical Medicine & Rehabilitation; ATTEND Physical Medicine & Rehabilitation
DX: I63.9 Cerebral infarction, unspecified (principal); G81.91 Hemiplegia, unspecified affecting right dominant side; R53.1 Weakness; Z74.1 Need for assistance with personal care; Z74.09 Other reduced mobility; M10.9 Gout, unspecified; I10 Essential (primary) hypertension; K21.9 Gastro-esophageal reflux disease without esophagitis; R30.0 Dysuria; G47.33 Obstructive sleep apnea (adult) (pediatric); R29.810 Facial weakness; Z79.891 Long term (current) use of opiate analgesic; Z96.653 Presence of artificial knee joint, bilateral; Z85.038 Personal history of other malignant neoplasm of large intestine; Z79.02 Long term (current) use of antithrombotics/antiplatelets; Z79.82 Long term (current) use of aspirin; Z79.899 Other long term (current) drug therapy; Z85.51 Personal history of malignant neoplasm of bladder; R09.81 Nasal congestion; R19.7 Diarrhea, unspecified

== ENCOUNTER → 2024-04-16 | Outpatient (REF) | payer MEDICARE, OTHER ==
[~2024-04-16] MED LIST changes: +ACET32TAB PO; +AMLO1TAB24 PO; +ATOR1TAB21 PO; +CLOP75TA2 PO; +HYDR-3490 PO; +LISI10TA22 PO; +RAME8TAB2 PO
== END ==
LOC: M SMT 17:06
PROVIDERS: ATTEND Urology
DX: C67.9 Malignant neoplasm of bladder, unspecified (principal)

== ENCOUNTER 2024-05-02 09:03 | Inpatient (IN) | payer MEDICARE, OTHER ==
[~2024-05-02] VITALS: Ht 180.3 cm; Wt 91.2 kg
[2024-05-02] VITALS (12 sets, daily range): BP systolic 142–164; BP diastolic 60–77; TEMP 97.9–98.4; O2SAT 91–96
[2024-05-02] MEDS ORDERED: ISOVUE-370 76% 100ML VIAL As Ordered ONE (09:37)
[2024-05-02 09:39] LABS: BASO % 0.4 % (0.0-1.0); EOS # 0.3 10^3/uL (0.0-0.5); EOS % 3.8 % (0.0-3.0); HEMATOCRIT 40.4 % (42.0-52.0); HEMOGLOBIN 13.5 g/dl (13.5-17.5); LYMPH # 2.1 10^3/uL (1.5-5.0); LYMPH % 29.6 % (24.0-44.0); MEAN CORPUSCULAR HEMOGLOBIN 31.1 pg (27.0-33.0); MEAN CORPUSCULAR HGB CONC 33.4 g/dl (32.0-36.5); MEAN CORPUSCULAR VOLUME 93.1 fl (80.0-96.0); MONO # 0.6 10^3/uL (0.0-0.8); NEUTROPHILS # 4.1 10^3/uL (1.5-8.5); NEUTROPHILS % 56.9 % (36.0-66.0); PLATELET COUNT, AUTOMATED 207 10^3/uL (150-450); RED BLOOD COUNT 4.34 10^6/uL (4.30-6.10); WHITE BLOOD COUNT 7.1 10^3/uL (4.0-10.0)
[2024-05-02 09:51] LABS: PROTHROMBIN TIME 13.5 SECONDS (12.5-14.5)
[2024-05-02 10:05] LABS: CK-MB VALUE MASS < 1.0 NG/ML (<3.6)
[2024-05-02 10:07] LABS: BLOOD UREA NITROGEN 14 MG/DL (9-23); CALCIUM LEVEL 9.4 MG/DL (8.3-10.6); CARBON DIOXIDE LEVEL 28 MMOL/L (20-31); CHLORIDE LEVEL 106 MMOL/L (98-107); CREATININE FOR GFR 1.12 MG/DL (0.70-1.30); GLOMERULAR FILTRATION RATE > 60.0 (>42); GLUCOSE, FASTING 107 MG/DL (74-106); POTASSIUM SERUM 3.9 MMOL/L (3.5-5.1); SODIUM LEVEL 143 MMOL/L (136-145)
[2024-05-02 10:28] LABS: CPK CREATINE PHOSPHOKINASE 99 U/L (46-171); MB/CK RELATIVE INDEX 1.01 (< OR =4)
[2024-05-02] MEDS ORDERED: ATOR80TA59 PO (13:23)
[2024-05-02] MEDS ORDERED: LISI10TA22 PO (13:23)
[2024-05-02] MEDS ORDERED: ALLO300T2 PO (13:23)
[2024-05-02] MEDS ORDERED: TAMS1CAP17 PO (13:23)
[2024-05-02] MEDS ORDERED: OMEG12003 PO (13:23)
[2024-05-02] MEDS ORDERED: ZOLP5TAB PO (13:23)
[2024-05-02] MEDS ORDERED: NORV5TAB PO (13:23)
[2024-05-02] MEDS ORDERED: HOME MED LIST COMPLETE! XX SCH (13:25)
[2024-05-02 15:31] LABS: BASO % 0.3 % (0.0-1.0); EOS # 0.2 10^3/uL (0.0-0.5); EOS % 3.5 % (0.0-3.0); HEMATOCRIT 38.2 % (42.0-52.0); HEMOGLOBIN 12.8 g/dl (13.5-17.5); LYMPH # 2.1 10^3/uL (1.5-5.0); LYMPH % 30.4 % (24.0-44.0); MEAN CORPUSCULAR HEMOGLOBIN 30.8 pg (27.0-33.0); MEAN CORPUSCULAR HGB CONC 33.5 g/dl (32.0-36.5); MONO # 0.6 10^3/uL (0.0-0.8); MONO % 9.2 % (2.0-8.0); NEUTROPHILS # 3.8 10^3/uL (1.5-8.5); NEUTROPHILS % 56.3 % (36.0-66.0); PLATELET COUNT, AUTOMATED 191 10^3/uL (150-450); RED BLOOD COUNT 4.15 10^6/uL (4.30-6.10); WHITE BLOOD COUNT 6.8 10^3/uL (4.0-10.0)
[2024-05-02 15:49] LABS: HEMOGLOBIN A1c 5.5 % (4.0-6.0); INR 1.06; PARTIAL THROMBOPLASTIN TIME 28.7 SECONDS (24.8-34.2); PROTHROMBIN TIME 14.1 SECONDS (12.5-14.5)
[2024-05-02] MEDS ORDERED: zolPIDEM TARTRATE 5 MG TAB PO PRN (15:50)
[2024-05-02 15:54] LABS: CK-MB VALUE MASS < 1.0 NG/ML (<3.6)
[2024-05-02 15:56] LABS: ALBUMIN 3.5 G/DL (3.2-5.2); ALKALINE PHOSPHATASE 90 U/L (40-129); ALT/SGPT 20 U/L (7.0-40); AST/SGOT 15 U/L (<34); BILIRUBIN,DIRECT 0.3 MG/DL (<0.4); BILIRUBIN,TOTAL 0.9 MG/DL (0.3-1.2); BLOOD UREA NITROGEN 12 MG/DL (9-23); CALCIUM LEVEL 9.2 MG/DL (8.3-10.6); CARBON DIOXIDE LEVEL 26 MMOL/L (20-31); CHLORIDE LEVEL 108 MMOL/L (98-107); CHOLESTEROL LEVEL 126 MG/DL (<200); CHOLESTEROL RISK RATIO 3.02 (<5); CPK CREATINE PHOSPHOKINASE 83 U/L (46-171); CREATININE FOR GFR 1.03 MG/DL (0.70-1.30); GLOMERULAR FILTRATION RATE > 60.0 (>42); GLUCOSE, FASTING 92 MG/DL (74-106); HDL CHOLESTEROL 41.7 MG/DL (>40); LDL CHOLESTEROL 64.5 MG/DL (<100); NON-HDL-C 84.3 MG/DL; POTASSIUM SERUM 3.8 MMOL/L (3.5-5.1); SODIUM LEVEL 142 MMOL/L (136-145); TOTAL PROTEIN 6.5 G/DL (5.7-8.2); TRIGLYCERIDES LEVEL 99 MG/DL (<150)
[2024-05-02] MEDS: allopurinoL 300 MG TAB PO SCH (18:11)
[2024-05-02] MEDS: ASPIRIN 81MG ENTERIC TABLET PO SCH (18:11)
[2024-05-02] MEDS: CLOPIDOGREL 75 MG TAB PO ONE (18:12)
[2024-05-02] MEDS: ATORVASTATIN 20 MG TAB PO SCH (20:30)
[2024-05-02] MEDS ORDERED: ATORVASTATIN 20 MG TAB PO SCH (21:00)
[2024-05-03] VITALS (23 sets, daily range): BP systolic 126–159; BP diastolic 77–91; TEMP 97.4–97.8; O2SAT 92–96
[2024-05-03] MEDS ORDERED: OMEPRAZOLE 20MG CAP PO SCH (09:00)
[2024-05-03] MEDS: CLOPIDOGREL 75 MG TAB PO SCH (13:13)
[2024-05-03] MEDS: PANTOPRAZOLE 40MG TAB (PROTONIX) PO SCH (13:14)
[2024-05-03] MEDS: TAMSULOSIN 0.4 MG CAP PO SCH (13:14)
[2024-05-03] MEDS ORDERED: VARIBAR PUDDING 40% w/v 230ML TUBE As Ordered ONE (15:17)
[2024-05-03] MEDS ORDERED: VARIBAR NECTAR 40% w/v 240ML SUSP BTL As Ordered ONE (15:17)
[2024-05-03] MEDS ORDERED: E-Z-PAQUE 96% w/w SUSP 176GM BTL As Ordered ONE (15:17)
[2024-05-03] MEDS ORDERED: BARIUM SULFATE 700 MG TABLET (E-Z-DISK) As Ordered ONE (15:17)
[2024-05-03] MEDS ORDERED: PANT40TA29 PO (18:53)
[2024-05-03] MEDS ORDERED: CLOP75TA2 PO (18:53)
[2024-05-04 03:13] VITALS: BP 146/70; TEMP 97.2; O2SAT 96
[2024-05-04 07:58] VITALS: BP 140/72; TEMP 97.5; O2SAT 96
[2024-05-04 11:57] VITALS: BP 107/55; TEMP 97.2; O2SAT 92
[2024-05-04 13:05] LABS: DRVV SCREEN 35.7 SECONDS
[2024-05-04 13:14] LABS: PTT LUPUS TYPE ANTICOAG SCREEN 0.87 (0-1.20)
[2024-05-06 08:17] LABS: ANA SCREEN, IFA NEGATIVE (NEGATIVE)
[2024-05-06 15:48] LABS: CARDIOLIPIN IGA ANTIBODY < 2.0 APL-U/mL (<20.0); CARDIOLIPIN IGG ANTIBODY < 2.0 GPL-U/mL (<20.0); CARDIOLIPIN IGM ANTIBODY < 2.0 MPL-U/mL (<20.0)
[2024-05-06 15:57] LABS: HOMOCYST(E)INE SERUM 13.5 umol/L (<11.4)
[2024-05-07 01:53] LABS: ANTI THROMBIN 3 ANTIGEN IMMUNO 99 % normal (80-120); ANTI THROMBIN 3 FUNCT ACTIVITY 108 % normal (80-135)
== END 2024-05-04 12:08 | disposition home or self-care (01) | DRG 66 ==
LOC: M ED 09:03 → M ED INP 14:47 → M PCU 15:53
PROVIDERS: ADMIT Student in an Organized Health Care Education/Training Program; ATTEND Student in an Organized Health Care Education/Training Program
PROC: B246ZZZ Ultrasonography of Right and Left Heart (ICD-10-PCS; principal; 2024-05-03)
DX: I63.531 Cerebral infarction due to unspecified occlusion or stenosis of right posterior cerebral artery (principal); R13.10 Dysphagia, unspecified; M10.9 Gout, unspecified; M19.90 Unspecified osteoarthritis, unspecified site; G47.33 Obstructive sleep apnea (adult) (pediatric); R47.1 Dysarthria and anarthria; I65.23 Occlusion and stenosis of bilateral carotid arteries; I10 Essential (primary) hypertension; Z79.82 Long term (current) use of aspirin; Z79.899 Other long term (current) drug therapy; Z85.038 Personal history of other malignant neoplasm of large intestine; Z96.653 Presence of artificial knee joint, bilateral; Z87.891 Personal history of nicotine dependence

== ENCOUNTER → 2024-05-04 | Outpatient (CLI) | payer MEDICARE, OTHER ==
[~2024-05-04] MED LIST changes: +ALLO300T2 PO; +ATOR80TA59 PO; +NORV5TAB PO; +OMEG12003 PO; +PANT40TA29 PO; +TAMS1CAP17 PO
== END ==
LOC: M EKG 12:15
PROVIDERS: ATTEND Student in an Organized Health Care Education/Training Program
DX: I63.9 Cerebral infarction, unspecified (principal); R00.1 Bradycardia, unspecified

== ENCOUNTER → 2024-06-08 | Outpatient (CLI) | payer MEDICARE, OTHER | LOC: M LAB 08:47 | PROVIDERS: ATTEND Internal Medicine | DX: Z01.812 Encounter for preprocedural laboratory examination (principal) ==

== ENCOUNTER 2024-06-10 10:15 | Outpatient (RCR) | payer MEDICARE, OTHER ==
[2024-06-11] MEDS ORDERED: ELIQ5TAB PO (14:25)
== END 2024-06-11 ==
LOC: M ST 10:15
PROVIDERS: ATTEND Internal Medicine
DX: I69.391 Dysphagia following cerebral infarction (principal); R13.10 Dysphagia, unspecified

== ENCOUNTER 2024-06-16 06:10 | Day surgery (SDC) | payer MEDICARE, OTHER ==
[~2024-06-16] VITALS: Ht 180.3 cm; Wt 102.1 kg
[~2024-06-16 06:10] MED LIST changes: +ELIQ5TAB PO
[2024-06-16] MEDS: ceFAZolin SOD 2 GM in IV 1 EA IV ONE (06:56)
[2024-06-16] MEDS ORDERED: propofoL 200 MG/20 ML VIAL As Ordered ONE (07:11)
[2024-06-16] MEDS ORDERED: fentaNYL 100 MCG/2 ML INJECTION As Ordered ONE (07:11)
[2024-06-16] MEDS ORDERED: MIDAZOLAM INJ 2MG/2ML VIAL As Ordered ONE (07:11)
[2024-06-16] MEDS ORDERED: LIDOCAINE 2% 100MG/5ML SDV (FOR ANES.) As Ordered ONE (07:11)
[2024-06-16] MEDS ORDERED: ACETAMINOPHEN 1000MG/100ML IV BAG As Ordered ONE (07:29)
[2024-06-16] MEDS: LIDOCAINE 1% SDV 30ML VIAL As Ordered ONE (07:45)
[2024-06-16 08:20] VITALS: BP 137/70; TEMP 98.5; O2SAT 96
[2024-06-16] MEDS ORDERED: NS (Normal Saline) 0.9% 1,000 ML IV SCH (08:45)
== END 2024-06-16 08:38 | disposition home or self-care (01) ==
LOC: M SDC 06:10
PROVIDERS: ATTEND Internal Medicine Cardiovascular Disease
DX: I49.3 Ventricular premature depolarization (principal); R00.1 Bradycardia, unspecified; I10 Essential (primary) hypertension; I77.810 Thoracic aortic ectasia; E78.49 Other hyperlipidemia; G47.33 Obstructive sleep apnea (adult) (pediatric); Z79.899 Other long term (current) drug therapy; Z79.01 Long term (current) use of anticoagulants; M10.9 Gout, unspecified; Z86.718 Personal history of other venous thrombosis and embolism; Z85.048 Personal history of other malignant neoplasm of rectum, rectosigmoid junction, and anus; Z86.73 Personal history of transient ischemic attack (TIA), and cerebral infarction without residual deficits; Z87.891 Personal history of nicotine dependence
CPT/HCPCS: 33285; C1764; J0131; J0690; J2250; J3010

== ENCOUNTER → 2024-07-09 | Outpatient (RCR) | payer MEDICARE, OTHER | LOC: M ST 06-18 10:18 | PROVIDERS: ATTEND Internal Medicine | DX: I69.391 Dysphagia following cerebral infarction (principal); R13.10 Dysphagia, unspecified ==

== ENCOUNTER 2024-08-05 09:16 | Outpatient (RCR) | payer MEDICARE, OTHER | END 2024-08-09 | LOC: M ST 09:16 | PROVIDERS: ATTEND Internal Medicine | DX: I69.391 Dysphagia following cerebral infarction (principal); R13.10 Dysphagia, unspecified ==

== ENCOUNTER → 2024-09-08 | Outpatient (RCR) | payer MEDICARE, OTHER ==
[~2024-09-08] MED LIST changes: -AMBI5TAB PO; -FLOM0.4C39 PO; +TAMS-18 PO; +ZOLP-532 PO
== END ==
LOC: M ST 08-13 10:03
PROVIDERS: ATTEND Internal Medicine
DX: I69.391 Dysphagia following cerebral infarction (principal); R13.10 Dysphagia, unspecified

== ENCOUNTER → 2025-01-12 | Outpatient (REF) | payer MEDICARE, OTHER | LOC: M LAB REF 14:17 | PROVIDERS: ATTEND Internal Medicine | DX: R53.83 Other fatigue (principal) ==

== ENCOUNTER → 2025-04-18 | Outpatient (REF) | payer MEDICARE, OTHER ==
[~2025-04-18] MED LIST changes: -ZOLP5TAB PO; +ZOLP5TAB9 PO
== END ==
LOC: M SMT 15:28
PROVIDERS: ATTEND Urology
DX: C67.9 Malignant neoplasm of bladder, unspecified (principal)

== ENCOUNTER → 2025-04-28 | Outpatient (CLI) | payer MEDICARE, OTHER | LOC: M ONCR 10:31 | PROVIDERS: ATTEND General Practice | DX: C44.519 Basal cell carcinoma of skin of other part of trunk (principal); Z79.01 Long term (current) use of anticoagulants; Z79.899 Other long term (current) drug therapy; Z86.73 Personal history of transient ischemic attack (TIA), and cerebral infarction without residual deficits; Z85.51 Personal history of malignant neoplasm of bladder; Z85.038 Personal history of other malignant neoplasm of large intestine; Z87.891 Personal history of nicotine dependence ==